=== PATIENT | male | born 1950 | race Caucasian/White ===

== ENCOUNTER 2018-11-11 15:15 | Outpatient (RCR) | payer MEDICARE, BC, SELFPAY ==
--- NOTE | 2018-10-06 12:45 | PT.OIE ---
Current Diagnoses Dorsalgia, unspecified (10/06/18) Provider Visit Care Team Role Provider Type Keith Clemens MD Attending Provider Physician Primary Care Provider Specialty: Internal Medicine Address: [address] [place] [address], [facility] Email: Physical Therapy Initial Evaluation PT-OP-A Visit Information Start: 10/09/18 12:36 Freq: Status: Active Protocol: Document 10/06/18 12:45 RCC (Rec: 10/09/18 12:59 RCC [email or web address]) Out-Patient Physical Therapy Visit Information Visit Information Visit Type Initial Evaluation Visit Start Time 12:00 Visit Stop Time 12:45 Total Visit Minutes 45 Visit Number 1 Number of [employer] Visits 0 Evaluation Information Evaluation Date 10/06/18 PT-OP-B Current Condition Start: 10/09/18 12:36 Freq: Status: Active Protocol: Document 10/06/18 12:45 RCC (Rec: 10/09/18 12:59 RCC [email or web address]) Current Condition History of Current Condition Onset Date August 2018 Current Complaints low back pain History of Current Condition Pt is a 68 y/o male presenting to physical therapy with a c/ o low back pain. Pt notes pain started after moving from [facility] to the [facility], lifting boxes and furniture, and traveling in an RV sleeping on a different mattress. Pt notes that pain has been getting better over the past two weeks . Aggravating factors: prolonged sitting and extension. Relieving factors: stretching. Pt without any imaging at this point. Treatment Goals Patient/Caregiver Goals decrease pain Prior Functional Status Baseline Function- ADL's Independent Baseline Function- Mobility Independent Baseline Function- Gait community gait without device, no pain. Current Functional Impairments (Reported) Functional Limitations- Mobility/Gait some increase in pain with prolonged standing and walking PT-OP-C Subjective Start: 10/09/18 12:36 Freq: Status: Active Protocol: Document 10/06/18 12:45 RCC (Rec: 10/09/18 12:59 RCC [email or web address]) Patient Questionnaires Oswestry Low Back Index Oswestry Score 14 Oswestry Impairment 1 to 19% Impaired (Score 1-19) OP-PT Pain Assessment Location Bilateral Lower Back Intensity 4 Scale Used Numeric (1 - 10) Description Aching PT-OP-F Manual Assessment Start: 10/09/18 12:36 Freq: Status: Active Protocol: Document 10/06/18 12:45 RCC (Rec: 10/09/18 12:59 RCC [email or web address]) Manual Assessments Soft Tissue Assessment Soft Tissue Mobility Assessment increased tension B paraspinals, piriformis and gluteals, QL Joint Mobility Assessment Joint Mobility Assessment hypermobility of L3-5 PT-OP-H Neuro Start: 10/09/18 12:36 Freq: Status: Active Protocol: Document 10/06/18 12:45 RCC (Rec: 10/09/18 12:59 RCC [email or web address]) Sensation Evaluation Gross Sensation Gross Sensation WNL Deep Tendon Reflex & Clonus Assessment Deep Tendon Reflex Bilateral Achilles Deep Tendon Reflex 2+ Normal Bilateral Patellar Deep Tendon Reflex 2+ Normal Ankle Clonus Bilateral Clonus Assessment Absent PT-OP-K Range of Motion Start: 10/09/18 12:36 Freq: Status: Active Protocol: Document 10/06/18 12:45 RCC (Rec: 10/09/18 12:59 RCC [email or web address]) Lumbar Spine Range of Motion Lumbar Spine Active Degrees Testing Position Standing Flexion 75 Extension 15 Comments pain upon return to neutral from extended position. PT-OP-L Special Tests Start: 10/09/18 12:36 Freq: Status: Active Protocol: Document 10/06/18 12:45 RCC (Rec: 10/09/18 12:59 RCC [email or web address]) Special Tests Lumbar Spine Special Tests SI provocation Test Results negative Slump Test Results negative Prone Instability Test Test Results positive Comments L3-5 Straight Leg Raise Test Results negative PT-OP-M Strength Start: 10/09/18 12:36 Freq: Status: Active Protocol: Document 10/06/18 12:45 RCC (Rec: 10/09/18 12:59 RCC [email or web address]) Hip Strength Hip Manual Muscle Testing Right Flexion (L2) 5 Normal External Rotation 4+ Good+ Internal Rotation 4 Good Left Flexion (L2) 5 Normal External Rotation 4+ Good+ Internal Rotation 4+ Good+ Knee Strength Knee Manual Muscle Testing Right Flexion (S2) 5 Normal Extension (L3) 5 Normal Left Flexion (S2) 5 Normal Extension (L3) 5 Normal Ankle/Foot Strength Ankle and Foot Manual Muscle Testing Right Dorsiflexion (L4) 5 Normal Left Dorsiflexion (L4) 5 Normal Toe Strength Toe Manual Muscle Testing Right Great Toe Extension 5 Normal Left Great Toe Extension 5 Normal PT-OP-Q Treatments Start: 10/09/18 12:36 Freq: Status: Active Protocol: Document 10/06/18 12:45 RCC (Rec: 10/09/18 12:59 RCC [email or web address]) Therapeutic Exercises Supine Exercises DKC Side bilateral rotation stretch Side bilateral piriformis stretch Side bilateral TrAb activation with march Supine Exercise Name transverse abdominal activation with marching Side bilateral Reps/Minutes 10 Other Exercises cat/camel Other Exercise Name cat/camel (camel to neutral only) Side bilateral Reps/Minutes 10 PT-OP-T Assessment and Plan Start: 10/09/18 12:36 Freq: Status: Active Protocol: Document 10/06/18 12:45 RCC (Rec: 10/09/18 12:59 RCC [email or web address]) Physical Therapy Assessment Rehab Potential Rehabilitation Potential Excellent Evaluation Complexity Number of Personal Factors/Comorbidities 1-2 Number of Body Systems Impaired 3 Clinical Presentation at Evaluation Stable Impairments Impairments Pain ROM Soft Tissue Mobility Strength Goals Modified Oswestry Impairment Modified Oswestry: 14% perceived disability Longterm Goal (LTG) Pt will score 0% perceived disability related to back pain prior to d/c to demonstrate improvements with daily function and activities, return to prior level of function. LTG Duration 6 weeks walking Impairment tolerance to gait Short Term Goal (STG) pt will ambulate 15 min, 3 days per week for a home walking program without increased in low back pain STG Duration 3 weeks Longterm Goal (LTG) pt will ambulate outdoors 30 min, 5 days per week as part of a home walking program without low back pain prior to d/c LTG Duration 6 weeks lumbar ROM Impairment lumbar extension Longterm Goal (LTG) lumbar extension to 20+ degrees without pain upon return to neutral to demonstrate improved lumbar stabilization. LTG Duration 6 weeks hip strength Impairment bilateral hip weakness Brickmason Contractor Goal (LTG) hip strength (IR and ER) to 5/ 5 with manual muscle testing prior to d/c. LTG Duration 6 weeks Assessment Summary Assessment Pt presents with signs and symptoms consistent with lumbar strain/sprain due to lumbar instability. Pt would greatly benefit from abdominal , lumbar, and hip strengthening/stabilization as well as flexibility training, progression of a HEP to decrease injury recurrence, establish a home walking program, and manual therapy to decrease pain in lumbar spine . Overall pt is an excellent candidate for skilled outpatient physical therapy. Physical Therapy Plan Frequency and Duration Frequency of Treatment 2x/Week Duration of Treatment 6 weeks Plan of Care Start Date 10/06/18 Plan of Care End Date 11/17/18 Therapeutic Interventions Therapeutic Interventions Aquatic Therapy Gait Training Home Exercise Program Joint Mobilizations Manual Therapy Neuromuscular Re-education Patient/Caregiver Education Self-Care/Home Management Soft Tissue Mobilization Taping Therapeutic Activities Therapeutic Exercises Modalities Cold Pack/Ice Massage Electric Stimulation Hot Packs Traction- Mechanical Ultrasound Next Visit Focus/Plan Next Note Type Treatment Note Next Visit Plan advance core/lumbar stability (flexion biasis likely initially, then progress to neutral and extension), hip IR and ER strengthening.
--- NOTE | 2018-10-11 17:32 | PT.OTN ---
Current Diagnoses Dorsalgia, unspecified (10/11/18) Physical Therapy Treatment Note PT-OP-A Visit Information Start: 10/09/18 12:36 Freq: Status: Active Protocol: Document 10/11/18 16:45 DCW (Rec: 10/11/18 17:32 DCW [id number]) Out-Patient Physical Therapy Visit Information Visit Information Visit Type Treatment Note Visit Start Time 16:45 Visit Stop Time 17:30 Total Visit Minutes 45 Visit Number 2 Number of ALLERGIST/IMMUNOLOGIST PHYSICIAN Visits 0 Evaluation Information Evaluation Date 10/06/18 PT-OP-B Current Condition Start: 10/09/18 12:36 Freq: Status: Active Protocol: Document 10/06/18 12:45 RCC (Rec: 10/09/18 12:59 RCC [email or web address]) Current Condition History of Current Condition Onset Date August 2018 Current Complaints low back pain History of Current Condition Pt is a 68 y/o male presenting to physical therapy with a c/ o low back pain. Pt notes pain started after moving from [facility] to the [facility], lifting boxes and furniture, and traveling in an sleeping on a different mattress. Pt notes that pain has been getting better over the past two weeks . Aggravating factors: prolonged sitting and extension. Relieving factors: stretching. Pt without any imaging at this point. Treatment Goals Patient/Caregiver Goals decrease pain Prior Functional Status Baseline Function- ADL's Independent Baseline Function- Mobility Independent Baseline Function- Gait community gait without device, no pain. Current Functional Impairments (Reported) Functional Limitations- Mobility/Gait some increase in pain with prolonged standing and walking PT-OP-C Subjective Start: 10/09/18 12:36 Freq: Status: Active Protocol: Document 10/11/18 16:45 DCW (Rec: 10/11/18 17:32 DCW [id number]) OP-PT Subjective Patient Comments Patient Comments Pt notes he is marginally better, but admits his back still seems to tighten up in the evening PT-OP-F Manual Assessment Start: 10/09/18 12:36 Freq: Status: Active Protocol: Document 10/06/18 12:45 RCC (Rec: 10/09/18 12:59 RCC [email or web address]) Manual Assessments Soft Tissue Assessment Soft Tissue Mobility Assessment increased tension B paraspinals, piriformis and gluteals, QL Joint Mobility Assessment Joint Mobility Assessment hypermobility of L3-5 PT-OP-H Neuro Start: 10/09/18 12:36 Freq: Status: Active Protocol: Document 10/06/18 12:45 RCC (Rec: 10/09/18 12:59 RCC [email or web address]) Sensation Evaluation Gross Sensation Gross Sensation WNL Deep Tendon Reflex & Clonus Assessment Deep Tendon Reflex Bilateral Achilles Deep Tendon Reflex 2+ Normal Bilateral Patellar Deep Tendon Reflex 2+ Normal Ankle Clonus Bilateral Clonus Assessment Absent PT-OP-K Range of Motion Start: 10/09/18 12:36 Freq: Status: Active Protocol: Document 10/06/18 12:45 RCC (Rec: 10/09/18 12:59 RCC [email or web address]) Lumbar Spine Range of Motion Lumbar Spine Active Degrees Testing Position Standing Flexion 75 Extension 15 Comments pain upon return to neutral from extended position. PT-OP-L Special Tests Start: 10/09/18 12:36 Freq: Status: Active Protocol: Document 10/06/18 12:45 RCC (Rec: 10/09/18 12:59 RCC [email or web address]) Special Tests Lumbar Spine Special Tests SI provocation Test Results negative Slump Test Results negative Prone Instability Test Test Results positive Comments L3-5 Straight Leg Raise Test Results negative PT-OP-M Strength Start: 10/09/18 12:36 Freq: Status: Active Protocol: Document 10/06/18 12:45 RCC (Rec: 10/09/18 12:59 RCC [email or web address]) Hip Strength Hip Manual Muscle Testing Right Flexion (L2) 5 Normal External Rotation 4+ Good+ Internal Rotation 4 Good Left Flexion (L2) 5 Normal External Rotation 4+ Good+ Internal Rotation 4+ Good+ Knee Strength Knee Manual Muscle Testing Right Flexion (S2) 5 Normal Extension (L3) 5 Normal Left Flexion (S2) 5 Normal Extension (L3) 5 Normal Ankle/Foot Strength Ankle and Foot Manual Muscle Testing Right Dorsiflexion (L4) 5 Normal Left Dorsiflexion (L4) 5 Normal Toe Strength Toe Manual Muscle Testing Right Great Toe Extension 5 Normal Left Great Toe Extension 5 Normal PT-OP-Q Treatments Start: 10/09/18 12:36 Freq: Status: Active Protocol: Document 10/11/18 16:45 DCW (Rec: 10/11/18 17:32 DCW [id number]) Gym Equipment Therapeutic Ball Resisted Trunk Rotation Exercise Details Trunk rotation vs Lv 3 T-band resistance Ball Size/Color Green - 65 cm Bridging on T-ball Exercise Details Bridging /c feet on T-ball Ball Size/Color Red - 55 cm Body Position Supine Therapeutic Exercises Supine Exercises TrA activation /c SLR Supine Exercise Name PPT /c TrA - Alternating SLR Bridging /c alternating LE ext Supine Exercise Name Bridging /c alternating leg extension Side bilateral Bridging Supine Exercise Name Bridging piriformis stretch Side bilateral Sidelying Exercises Reverse Clamshell Sidelying Exercise Name Hip IR - Reverse Clamshell Side bilateral Clamshell Sidelying Exercise Name Hip ER - Clamshell Side bilateral Other Exercises Resisted Forward/Retro Walking Other Exercise Name Resisted Fwd/Retro Ambulation Side bilateral Resistance Green Equipment Used T-band Resisted Side-stepping Other Exercise Name Resisted Side-stepping Side bilateral Resistance Green Equipment Used T-band PT-OP-T Assessment and Plan Start: 10/09/18 12:36 Freq: Status: Active Protocol: Document 10/11/18 16:45 DCW (Rec: 10/11/18 17:32 DCW [email or web address]) Physical Therapy Assessment Impairments Impairments Pain ROM Soft Tissue Mobility Strength Goals Modified Oswestry Impairment Modified Oswestry: 14% perceived disability Alf Goal (LTG) Pt will score 0% perceived disability related to back pain prior to d/c to demonstrate improvements with daily function and activities, return to prior level of function. LTG Duration 6 weeks walking Impairment tolerance to gait Short Term Goal (STG) pt will ambulate 15 min, 3 days per week for a home walking program without increased in low back pain STG Duration 3 weeks Alf Goal (LTG) pt will ambulate outdoors 30 min, 5 days per week as part of a home walking program without low back pain prior to d/c LTG Duration 6 weeks lumbar ROM Impairment lumbar extension Finish Patcher Goal (LTG) lumbar extension to 20+ degrees without pain upon return to neutral to demonstrate improved lumbar stabilization. LTG Duration 6 weeks hip strength Impairment bilateral hip weakness Alf Goal (LTG) hip strength (IR and ER) to 5/ 5 with manual muscle testing prior to d/c. LTG Duration 6 weeks Assessment Summary Assessment Pt tolerated new hip and core strengthening exercises well with no complaints of back pain Physical Therapy Plan Frequency and Duration Frequency of Treatment 2x/Week Duration of Treatment 6 weeks Plan of Care Start Date 10/06/18 Plan of Care End Date 11/17/18 Therapeutic Interventions Therapeutic Interventions Aquatic Therapy Gait Training Home Exercise Program Joint Mobilizations Manual Therapy Neuromuscular Re-education Patient/Caregiver Education Self-Care/Home Management Soft Tissue Mobilization Taping Therapeutic Activities Therapeutic Exercises Modalities Cold Pack/Ice Massage Electric Stimulation Hot Packs Traction- Mechanical Ultrasound Next Visit Focus/Plan Next Note Type Treatment Note Next Visit Plan Continue and advance LE and core strengthening, plan to add manual therapy to spine and additional flexibility training.
--- NOTE | 2018-10-25 17:55 | PT.OTN ---
Current Diagnoses Dorsalgia, unspecified (10/25/18) Physical Therapy Treatment Note PT-OP-A Visit Information Start: 10/09/18 12:36 Freq: Status: Active Protocol: Document 10/25/18 16:45 DCW (Rec: 10/25/18 17:55 DC [id number]) Out-Patient Physical Therapy Visit Information Visit Information Visit Type Treatment Note Visit Start Time 16:45 Visit Stop Time 17:30 Total Visit Minutes 45 Visit Number 3 Number of AMALGAMATOR Visits 0 Evaluation Information Evaluation Date 10/06/18 PT-OP-B Current Condition Start: 10/09/18 12:36 Freq: Status: Active Protocol: Document 10/06/18 12:45 RCC (Rec: 10/09/18 12:59 RCC [email or web address]) Current Condition History of Current Condition Onset Date August 2018 Current Complaints low back pain History of Current Condition Pt is a 68 y/o male presenting to physical therapy with a c/ o low back pain. Pt notes pain started after moving from [facility] to the [facility], lifting boxes and furniture, and traveling in an sleeping on a different mattress. Pt notes that pain has been getting better over the past two weeks . Aggravating factors: prolonged sitting and extension. Relieving factors: stretching. Pt without any imaging at this point. Treatment Goals Patient/Caregiver Goals decrease pain Prior Functional Status Baseline Function- ADL's Independent Baseline Function- Mobility Independent Baseline Function- Gait community gait without device, no pain. Current Functional Impairments (Reported) Functional Limitations- Mobility/Gait some increase in pain with prolonged standing and walking PT-OP-C Subjective Start: 10/09/18 12:36 Freq: Status: Active Protocol: Document 10/25/18 16:45 DCW (Rec: 10/25/18 17:55 DCW [id number]) OP-PT Subjective Patient Comments Patient Comments Pt reports he is doing better today, but over-did it Wednesday and was pretty sore. PT-OP-F Manual Assessment Start: 10/09/18 12:36 Freq: Status: Active Protocol: Document 10/06/18 12:45 RCC (Rec: 10/09/18 12:59 RCC [email or web address]) Manual Assessments Soft Tissue Assessment Soft Tissue Mobility Assessment increased tension B paraspinals, piriformis and gluteals, QL Joint Mobility Assessment Joint Mobility Assessment hypermobility of L3-5 PT-OP-H Neuro Start: 10/09/18 12:36 Freq: Status: Active Protocol: Document 10/06/18 12:45 RCC (Rec: 10/09/18 12:59 RCC [email or web address]) Sensation Evaluation Gross Sensation Gross Sensation WNL Deep Tendon Reflex & Clonus Assessment Deep Tendon Reflex Bilateral Achilles Deep Tendon Reflex 2+ Normal Bilateral Patellar Deep Tendon Reflex 2+ Normal Ankle Clonus Bilateral Clonus Assessment Absent PT-OP-K Range of Motion Start: 10/09/18 12:36 Freq: Status: Active Protocol: Document 10/06/18 12:45 RCC (Rec: 10/09/18 12:59 RCC [email or web address]) Lumbar Spine Range of Motion Lumbar Spine Active Degrees Testing Position Standing Flexion 75 Extension 15 Comments pain upon return to neutral from extended position. PT-OP-L Special Tests Start: 10/09/18 12:36 Freq: Status: Active Protocol: Document 10/06/18 12:45 RCC (Rec: 10/09/18 12:59 RCC [email or web address]) Special Tests Lumbar Spine Special Tests SI provocation Test Results negative Slump Test Results negative Prone Instability Test Test Results positive Comments L3-5 Straight Leg Raise Test Results negative PT-OP-M Strength Start: 10/09/18 12:36 Freq: Status: Active Protocol: Document 10/06/18 12:45 RCC (Rec: 10/09/18 12:59 RCC [email or web address]) Hip Strength Hip Manual Muscle Testing Right Flexion (L2) 5 Normal External Rotation 4+ Good+ Internal Rotation 4 Good Left Flexion (L2) 5 Normal External Rotation 4+ Good+ Internal Rotation 4+ Good+ Knee Strength Knee Manual Muscle Testing Right Flexion (S2) 5 Normal Extension (L3) 5 Normal Left Flexion (S2) 5 Normal Extension (L3) 5 Normal Ankle/Foot Strength Ankle and Foot Manual Muscle Testing Right Dorsiflexion (L4) 5 Normal Left Dorsiflexion (L4) 5 Normal Toe Strength Toe Manual Muscle Testing Right Great Toe Extension 5 Normal Left Great Toe Extension 5 Normal PT-OP-Q Treatments Start: 10/09/18 12:36 Freq: Status: Active Protocol: Document 10/25/18 16:45 DCW (Rec: 10/25/18 17:55 DCW [id number]) Gym Equipment Shuttle Recovery Unilateral Squats Resistance 62# Shuttle Recovery Platform Stable Reps/Time VCs for TrA activation Bilateral Squats Resistance 100# Shuttle Recovery Platform Stable Reps/Time VCs for TrA activation Shuttle Balance Red Details Wide ROCAEL (EO/EC), Staggered Stance Therapeutic Ball Bridging with Hamstring Curls Exercise Details Bridging with Hamstring Curls Ball Size/Color Red - 55 cm Body Position Supine Resisted Trunk Rotation Exercise Details Trunk rotation vs Lv 3 T-band resistance Ball Size/Color Green - 65 cm Bridging on T-ball Exercise Details Bridging /c feet on T-ball Ball Size/Color Red - 55 cm Body Position Supine Therapeutic Exercises Supine Exercises Hamstring Stretch Supine Exercise Name HS stretch /c belt Side bilateral Other Exercises Resisted Forward/Retro Walking Other Exercise Name Resisted Fwd/Retro Ambulation Side bilateral Resistance Green Equipment Used T-band Resisted Side-stepping Other Exercise Name Resisted Side-stepping Side bilateral Resistance Green Equipment Used T-band PT-OP-T Assessment and Plan Start: 10/09/18 12:36 Freq: Status: Active Protocol: Document 10/25/18 16:45 DCW (Rec: 10/25/18 17:55 DCW [id number]) Physical Therapy Assessment Impairments Impairments Pain ROM Soft Tissue Mobility Strength Goals Modified Oswestry Impairment Modified Oswestry: 14% perceived disability Shelter Goal (LTG) Pt will score 0% perceived disability related to back pain prior to d/c to demonstrate improvements with daily function and activities, return to prior level of function. LTG Duration 6 weeks walking Impairment tolerance to gait Short Term Goal (STG) pt will ambulate 15 min, 3 days per week for a home walking program without increased in low back pain STG Duration 3 weeks Sugar Mixer Goal (LTG) pt will ambulate outdoors 30 min, 5 days per week as part of a home walking program without low back pain prior to d/c LTG Duration 6 weeks lumbar ROM Impairment lumbar extension Sugar Mixer Goal (LTG) lumbar extension to 20+ degrees without pain upon return to neutral to demonstrate improved lumbar stabilization. LTG Duration 6 weeks hip strength Impairment bilateral hip weakness Shelter Goal (LTG) hip strength (IR and ER) to 5/ 5 with manual muscle testing prior to d/c. LTG Duration 6 weeks Assessment Summary Assessment Pt tolerated advancement of core and LE strengthening, work on increased lumbar stability Physical Therapy Plan Frequency and Duration Frequency of Treatment 2x/Week Duration of Treatment 6 weeks Plan of Care Start Date 10/06/18 Plan of Care End Date 11/17/18 Therapeutic Interventions Therapeutic Interventions Aquatic Therapy Gait Training Home Exercise Program Joint Mobilizations Manual Therapy Neuromuscular Re-education Patient/Caregiver Education Self-Care/Home Management Soft Tissue Mobilization Taping Therapeutic Activities Therapeutic Exercises Modalities Cold Pack/Ice Massage Electric Stimulation Hot Packs Traction- Mechanical Ultrasound Next Visit Focus/Plan Next Note Type Treatment Note Next Visit Plan Continue and advance LE and core strengthening, plan to add manual therapy to spine and additional flexibility training.
--- NOTE | 2018-11-01 12:44 | PT.OTN ---
Current Diagnoses Dorsalgia, unspecified (11/01/18) Physical Therapy Treatment Note PT-OP-A Visit Information Start: 10/09/18 12:36 Freq: Status: Active Protocol: Document 11/01/18 12:00 DCW (Rec: 11/01/18 12:43 DCW [id number]) Out-Patient Physical Therapy Visit Information Visit Information Visit Type Treatment Note Visit Start Time 12:00 Visit Stop Time 12:45 Total Visit Minutes 45 Visit Number 4 Number of SWEATBAND MAKER Visits 0 Evaluation Information Evaluation Date 10/06/18 PT-OP-B Current Condition Start: 10/09/18 12:36 Freq: Status: Active Protocol: Document 10/06/18 12:45 RCC (Rec: 10/09/18 12:59 RCC [email or web address]) Current Condition History of Current Condition Onset Date August 2018 Current Complaints low back pain History of Current Condition Pt is a 68 y/o male presenting to physical therapy with a c/ o low back pain. Pt notes pain started after moving from [place] to the [facility], lifting boxes and furniture, and traveling in an sleeping on a different mattress. Pt notes that pain has been getting better over the past two weeks . Aggravating factors: prolonged sitting and extension. Relieving factors: stretching. Pt without any imaging at this point. Treatment Goals Patient/Caregiver Goals decrease pain Prior Functional Status Baseline Function- ADL's Independent Baseline Function- Mobility Independent Baseline Function- Gait community gait without device, no pain. Current Functional Impairments (Reported) Functional Limitations- Mobility/Gait some increase in pain with prolonged standing and walking PT-OP-C Subjective Start: 10/09/18 12:36 Freq: Status: Active Protocol: Document 11/01/18 12:00 DCW (Rec: 11/01/18 12:43 DCW [id number]) OP-PT Subjective Patient Comments Patient Comments I'm a bit better. It took a while, but I'm finally coming to realize that I'm getting older, and it just takes longer to heal and to come back from injuries. PT-OP-F Manual Assessment Start: 10/09/18 12:36 Freq: Status: Active Protocol: Document 10/06/18 12:45 RCC (Rec: 10/09/18 12:59 RCC [email or web address]) Manual Assessments Soft Tissue Assessment Soft Tissue Mobility Assessment increased tension B paraspinals, piriformis and gluteals, QL Joint Mobility Assessment Joint Mobility Assessment hypermobility of L3-5 PT-OP-H Neuro Start: 10/09/18 12:36 Freq: Status: Active Protocol: Document 10/06/18 12:45 RCC (Rec: 10/09/18 12:59 RCC [email or web address]) Sensation Evaluation Gross Sensation Gross Sensation WNL Deep Tendon Reflex & Clonus Assessment Deep Tendon Reflex Bilateral Achilles Deep Tendon Reflex 2+ Normal Bilateral Patellar Deep Tendon Reflex 2+ Normal Ankle Clonus Bilateral Clonus Assessment Absent PT-OP-K Range of Motion Start: 10/09/18 12:36 Freq: Status: Active Protocol: Document 10/06/18 12:45 RCC (Rec: 10/09/18 12:59 RCC [email or web address]) Lumbar Spine Range of Motion Lumbar Spine Active Degrees Testing Position Standing Flexion 75 Extension 15 Comments pain upon return to neutral from extended position. PT-OP-L Special Tests Start: 10/09/18 12:36 Freq: Status: Active Protocol: Document 10/06/18 12:45 RCC (Rec: 10/09/18 12:59 RCC [email or web address]) Special Tests Lumbar Spine Special Tests SI provocation Test Results negative Slump Test Results negative Prone Instability Test Test Results positive Comments L3-5 Straight Leg Raise Test Results negative PT-OP-M Strength Start: 10/09/18 12:36 Freq: Status: Active Protocol: Document 10/06/18 12:45 RCC (Rec: 10/09/18 12:59 RCC [email or web address]) Hip Strength Hip Manual Muscle Testing Right Flexion (L2) 5 Normal External Rotation 4+ Good+ Internal Rotation 4 Good Left Flexion (L2) 5 Normal External Rotation 4+ Good+ Internal Rotation 4+ Good+ Knee Strength Knee Manual Muscle Testing Right Flexion (S2) 5 Normal Extension (L3) 5 Normal Left Flexion (S2) 5 Normal Extension (L3) 5 Normal Ankle/Foot Strength Ankle and Foot Manual Muscle Testing Right Dorsiflexion (L4) 5 Normal Left Dorsiflexion (L4) 5 Normal Toe Strength Toe Manual Muscle Testing Right Great Toe Extension 5 Normal Left Great Toe Extension 5 Normal PT-OP-Q Treatments Start: 10/09/18 12:36 Freq: Status: Active Protocol: Document 11/01/18 12:00 DCW (Rec: 11/01/18 12:43 DCW [id number]) Gym Equipment Shuttle Recovery Unilateral Squats Resistance 62# Shuttle Recovery Platform Stable Reps/Time VCs for TrA activation Bilateral Squats Resistance 100# Shuttle Recovery Platform Stable Reps/Time VCs for TrA activation Shuttle Balance Red Details Wide ROCAEL (EO/EC), Staggered Stance Therapeutic Ball Bridging with Hamstring Curls Exercise Details Bridging with Hamstring Curls Ball Size/Color Red - 55 cm Body Position Supine Resisted Trunk Rotation Exercise Details Trunk rotation vs Lv 3 T-band resistance Ball Size/Color Green - 65 cm Bridging on T-ball Exercise Details Bridging /c feet on T-ball Ball Size/Color Red - 55 cm Body Position Supine Therapeutic Exercises Sidelying Exercises Reverse Clamshell Sidelying Exercise Name Hip IR - Reverse Clamshell Side bilateral Resistance Lv 2 Equipment Used T-band Clamshell Sidelying Exercise Name Hip ER - Clamshell Side bilateral Resistance Lv 2 Equipment Used T-band Other Exercises Resisted Forward/Retro Walking Other Exercise Name Resisted Fwd/Retro Ambulation Side bilateral Resistance Green Equipment Used T-band Resisted Side-stepping Other Exercise Name Resisted Side-stepping Side bilateral Resistance Green Equipment Used T-band cat/camel Other Exercise Name cat/camel (camel to neutral only) Side bilateral Reps/Minutes 10 PT-OP-T Assessment and Plan Start: 10/09/18 12:36 Freq: Status: Active Protocol: Document 11/01/18 12:00 DCW (Rec: 11/01/18 12:43 [facility] [id number]) Physical Therapy Assessment Impairments Impairments Pain ROM Soft Tissue Mobility Strength Goals Modified Oswestry Impairment Modified Oswestry: 14% perceived disability Search Engine Marketing Strategist Goal (LTG) Pt will score 0% perceived disability related to back pain prior to d/c to demonstrate improvements with daily function and activities, return to prior level of function. LTG Duration 6 weeks walking Impairment tolerance to gait Short Term Goal (STG) pt will ambulate 15 min, 3 days per week for a home walking program without increased in low back pain STG Duration 3 weeks Group Home Goal (LTG) pt will ambulate outdoors 30 min, 5 days per week as part of a home walking program without low back pain prior to d/c LTG Duration 6 weeks lumbar ROM Impairment lumbar extension Group Home Goal (LTG) lumbar extension to 20+ degrees without pain upon return to neutral to demonstrate improved lumbar stabilization. LTG Duration 6 weeks hip strength Impairment bilateral hip weakness Group Home Goal (LTG) hip strength (IR and ER) to 5/ 5 with manual muscle testing prior to d/c. LTG Duration 6 weeks Assessment Summary Assessment Pt showing improvement with his back pain and LE/Core strengthening. Physical Therapy Plan Frequency and Duration Frequency of Treatment 2x/Week Duration of Treatment 6 weeks Plan of Care Start Date 10/06/18 Plan of Care End Date 11/17/18 Therapeutic Interventions Therapeutic Interventions Aquatic Therapy Gait Training Home Exercise Program Joint Mobilizations Manual Therapy Neuromuscular Re-education Patient/Caregiver Education Self-Care/Home Management Soft Tissue Mobilization Taping Therapeutic Activities Therapeutic Exercises Modalities Cold Pack/Ice Massage Electric Stimulation Hot Packs Traction- Mechanical Ultrasound Next Visit Focus/Plan Next Note Type Treatment Note Next Visit Plan Continue and advance LE and core strengthening, plan to add manual therapy to spine and additional flexibility training.
--- NOTE | 2018-11-04 15:10 | PT.OTN ---
Current Diagnoses Dorsalgia, unspecified (11/04/18) Physical Therapy Treatment Note PT-OP-A Visit Information Start: 10/09/18 12:36 Freq: Status: Active Protocol: Document 11/04/18 15:10 RCC (Rec: 11/04/18 15:31 RCC [email or web address]) Out-Patient Physical Therapy Visit Information Visit Information Visit Type Treatment Note Visit Start Time 14:30 Visit Stop Time 15:10 Total Visit Minutes 40 Visit Number 5 Number of HUMANITIES TEACHER Visits 0 Evaluation Information Evaluation Date 10/06/18 PT-OP-B Current Condition Start: 10/09/18 12:36 Freq: Status: Active Protocol: Document 10/06/18 12:45 RCC (Rec: 10/09/18 12:59 RCC [email or web address]) Current Condition History of Current Condition Onset Date August 2018 Current Complaints low back pain History of Current Condition Pt is a 68 y/o male presenting to physical therapy with a c/ o low back pain. Pt notes pain started after moving from [facility] to the [facility], lifting boxes and furniture, and traveling in an sleeping on a different mattress. Pt notes that pain has been getting better over the past two weeks . Aggravating factors: prolonged sitting and extension. Relieving factors: stretching. Pt without any imaging at this point. Treatment Goals Patient/Caregiver Goals decrease pain Prior Functional Status Baseline Function- ADL's Independent Baseline Function- Mobility Independent Baseline Function- Gait community gait without device, no pain. Current Functional Impairments (Reported) Functional Limitations- Mobility/Gait some increase in pain with prolonged standing and walking PT-OP-C Subjective Start: 10/09/18 12:36 Freq: Status: Active Protocol: Document 11/04/18 15:10 RCC (Rec: 11/04/18 15:31 RCC [email or web address]) OP-PT Subjective Patient Comments Patient Comments Pt notes that he occasionally has L foot numbness/tingling when he wakes up in the morning. He is still having some minor pain in the low back region. PT-OP-F Manual Assessment Start: 10/09/18 12:36 Freq: Status: Active Protocol: Document 11/04/18 15:10 RCC (Rec: 11/04/18 15:31 RCC [email or web address]) Manual Assessments Other Manual Assessments Other Manual Assessments R posterior ilial rotation. unable to illicit R achilles DTR PT-OP-H Neuro Start: 10/09/18 12:36 Freq: Status: Active Protocol: Document 10/06/18 12:45 RCC (Rec: 10/09/18 12:59 RCC [email or web address]) Sensation Evaluation Gross Sensation Gross Sensation WNL Deep Tendon Reflex & Clonus Assessment Deep Tendon Reflex Bilateral Achilles Deep Tendon Reflex 2+ Normal Bilateral Patellar Deep Tendon Reflex 2+ Normal Ankle Clonus Bilateral Clonus Assessment Absent PT-OP-K Range of Motion Start: 10/09/18 12:36 Freq: Status: Active Protocol: Document 10/06/18 12:45 RCC (Rec: 10/09/18 12:59 RCC [email or web address]) Lumbar Spine Range of Motion Lumbar Spine Active Degrees Testing Position Standing Flexion 75 Extension 15 Comments pain upon return to neutral from extended position. PT-OP-L Special Tests Start: 10/09/18 12:36 Freq: Status: Active Protocol: Document 10/06/18 12:45 RCC (Rec: 10/09/18 12:59 RCC [email or web address]) Special Tests Lumbar Spine Special Tests SI provocation Test Results negative Slump Test Results negative Prone Instability Test Test Results positive Comments L3-5 Straight Leg Raise Test Results negative PT-OP-M Strength Start: 10/09/18 12:36 Freq: Status: Active Protocol: Document 10/06/18 12:45 RCC (Rec: 10/09/18 12:59 RCC [email or web address]) Hip Strength Hip Manual Muscle Testing Right Flexion (L2) 5 Normal External Rotation 4+ Good+ Internal Rotation 4 Good Left Flexion (L2) 5 Normal External Rotation 4+ Good+ Internal Rotation 4+ Good+ Knee Strength Knee Manual Muscle Testing Right Flexion (S2) 5 Normal Extension (L3) 5 Normal Left Flexion (S2) 5 Normal Extension (L3) 5 Normal Ankle/Foot Strength Ankle and Foot Manual Muscle Testing Right Dorsiflexion (L4) 5 Normal Left Dorsiflexion (L4) 5 Normal Toe Strength Toe Manual Muscle Testing Right Great Toe Extension 5 Normal Left Great Toe Extension 5 Normal PT-OP-Q Treatments Start: 10/09/18 12:36 Freq: Status: Active Protocol: Document 11/04/18 15:10 RCC (Rec: 11/04/18 15:31 RCC [email or web address]) Therapeutic Exercises Supine Exercises DKC Side bilateral rotation stretch Side bilateral piriformis stretch Side bilateral Prone Exercises hip extension Side bilateral Reps/Minutes 1x10 each Standing Exercises HS stretch Side bilateral Reps/Minutes 2x30 sec each hip hike Standing Exercise Name hip hiking on stair Side bilateral Reps/Minutes 1x10 each hip extension Side bilateral Resistance L2 Reps/Minutes 1x10 each Other Exercises quadruped alternating LE Side bilateral Reps/Minutes 1x10 each Manual Therapy Treatment Soft Tissue Mobilization lumbar paraspinals Body Location bilateral lumbar paraspinals Mobilization Type Rolling Strumming Intensity/Depth Moderate Body Position Prone Manual Techniques MET Type R posterior ilial rotation correction with scissor technique Body Position Hooklying PT-OP-T Assessment and Plan Start: 10/09/18 12:36 Freq: Status: Active Protocol: Document 11/04/18 15:10 RCC (Rec: 11/04/18 15:31 RCC [email or web address]) Physical Therapy Assessment Assessment Summary Assessment Pt continues to have mild c/o low back pain. He requires occasional cuing with quadruped and standing strengthening exercises. Absent/unable to illicit his R achilles DTR today, but L achilles and B patellar DTRs 2 +. Physical Therapy Plan Frequency and Duration Frequency of Treatment 2x/Week Duration of Treatment 6 weeks Plan of Care Start Date 10/06/18 Plan of Care End Date 11/17/18 Next Visit Focus/Plan Next Note Type Treatment Note Next Visit Plan assess tolerance to manual therapy, review and progress HEP (added hip hike on stairs and quadruped alt LE lift this session).
--- NOTE | 2018-11-08 12:45 | PT.OTN ---
Current Diagnoses Dorsalgia, unspecified (11/08/18) Physical Therapy Treatment Note PT-OP-A Visit Information Start: 10/09/18 12:36 Freq: Status: Active Protocol: Document 11/08/18 12:00 DCW (Rec: 11/08/18 12:45 DCW [id number]) Out-Patient Physical Therapy Visit Information Visit Information Visit Type Treatment Note Visit Start Time 12:00 Visit Stop Time 12:45 Total Visit Minutes 45 Visit Number 6 Number of PIT FURNACE OPERATOR Visits 0 Evaluation Information Evaluation Date 10/06/18 PT-OP-B Current Condition Start: 10/09/18 12:36 Freq: Status: Active Protocol: Document 10/06/18 12:45 RCC (Rec: 10/09/18 12:59 RCC [email or web address]) Current Condition History of Current Condition Onset Date August 2018 Current Complaints low back pain History of Current Condition Pt is a 68 y/o male presenting to physical therapy with a c/ o low back pain. Pt notes pain started after moving from [facility] to the [facility], lifting boxes and furniture, and traveling in an sleeping on a different mattress. Pt notes that pain has been getting better over the past two weeks . Aggravating factors: prolonged sitting and extension. Relieving factors: stretching. Pt without any imaging at this point. Treatment Goals Patient/Caregiver Goals decrease pain Prior Functional Status Baseline Function- ADL's Independent Baseline Function- Mobility Independent Baseline Function- Gait community gait without device, no pain. Current Functional Impairments (Reported) Functional Limitations- Mobility/Gait some increase in pain with prolonged standing and walking PT-OP-C Subjective Start: 10/09/18 12:36 Freq: Status: Active Protocol: Document 11/08/18 12:00 DCW (Rec: 11/08/18 12:45 DCW [id number]) OP-PT Subjective Patient Comments Patient Comments Pt reports he has been doing well today, but notes yesterday wasn't as good, he believes due to spending a lot of time in his car. PT-OP-F Manual Assessment Start: 10/09/18 12:36 Freq: Status: Active Protocol: Document 11/04/18 15:10 RCC (Rec: 11/04/18 15:31 RCC [email or web address]) Manual Assessments Other Manual Assessments Other Manual Assessments R posterior ilial rotation. unable to ilicit R achilles DTR PT-OP-H Neuro Start: 10/09/18 12:36 Freq: Status: Active Protocol: Document 10/06/18 12:45 RCC (Rec: 10/09/18 12:59 RCC [email or web address]) Sensation Evaluation Gross Sensation Gross Sensation WNL Deep Tendon Reflex & Clonus Assessment Deep Tendon Reflex Bilateral Achilles Deep Tendon Reflex 2+ Normal Bilateral Patellar Deep Tendon Reflex 2+ Normal Ankle Clonus Bilateral Clonus Assessment Absent PT-OP-K Range of Motion Start: 10/09/18 12:36 Freq: Status: Active Protocol: Document 10/06/18 12:45 RCC (Rec: 10/09/18 12:59 RCC [email or web address]) Lumbar Spine Range of Motion Lumbar Spine Active Degrees Testing Position Standing Flexion 75 Extension 15 Comments pain upon return to neutral from extended position. PT-OP-L Special Tests Start: 10/09/18 12:36 Freq: Status: Active Protocol: Document 10/06/18 12:45 RCC (Rec: 10/09/18 12:59 RCC [email or web address]) Special Tests Lumbar Spine Special Tests SI provocation Test Results negative Slump Test Results negative Prone Instability Test Test Results positive Comments L3-5 Straight Leg Raise Test Results negative PT-OP-M Strength Start: 10/09/18 12:36 Freq: Status: Active Protocol: Document 10/06/18 12:45 RCC (Rec: 10/09/18 12:59 RCC [email or web address]) Hip Strength Hip Manual Muscle Testing Right Flexion (L2) 5 Normal External Rotation 4+ Good+ Internal Rotation 4 Good Left Flexion (L2) 5 Normal External Rotation 4+ Good+ Internal Rotation 4+ Good+ Knee Strength Knee Manual Muscle Testing Right Flexion (S2) 5 Normal Extension (L3) 5 Normal Left Flexion (S2) 5 Normal Extension (L3) 5 Normal Ankle/Foot Strength Ankle and Foot Manual Muscle Testing Right Dorsiflexion (L4) 5 Normal Left Dorsiflexion (L4) 5 Normal Toe Strength Toe Manual Muscle Testing Right Great Toe Extension 5 Normal Left Great Toe Extension 5 Normal PT-OP-Q Treatments Start: 10/09/18 12:36 Freq: Status: Active Protocol: Document 11/08/18 12:00 DCW (Rec: 11/08/18 12:45 DCW [id number]) Gym Equipment Shuttle Recovery Unilateral Squats Resistance 62# Shuttle Recovery Platform Stable Reps/Time VCs for TrA activation Bilateral Squats Resistance 100# Shuttle Recovery Platform Stable Reps/Time VCs for TrA activation Shuttle Balance Red Details Wide ROCAEL (EO/EC), Staggered Stance, Lateral Weight Shift Therapeutic Ball Pelvic Tilts/Circles Exercise Details Pelvic Tilts/Circles Ball Size/Color Green - 65 cm Body Position Sitting Bridging with Hamstring Curls Exercise Details Bridging with Hamstring Curls Ball Size/Color Red - 55 cm Body Position Supine Bridging on T-ball Exercise Details Bridging /c feet on T-ball Ball Size/Color Red - 55 cm Body Position Supine Therapeutic Exercises Standing Exercises Quad Stretch Standing Exercise Name Quad stretch HS stretch Side bilateral Reps/Minutes 2x30 sec each hip hike Standing Exercise Name hip hiking on stair Side bilateral Reps/Minutes 1x10 each Other Exercises Resisted Forward/Retro Walking Other Exercise Name Resisted Fwd/Retro Ambulation Side bilateral Resistance Green Equipment Used T-band Resisted Side-stepping Other Exercise Name Resisted Side-stepping Side bilateral Resistance Green Equipment Used T-band PT-OP-T Assessment and Plan Start: 10/09/18 12:36 Freq: Status: Active Protocol: Document 11/08/18 12:00 DCW (Rec: 11/08/18 12:45 DCW [id number]) Physical Therapy Assessment Impairments Impairments Pain ROM Soft Tissue Mobility Strength Goals Modified Oswestry Impairment Modified Oswestry: 14% perceived disability Production Hardener Goal (LTG) Pt will score 0% perceived disability related to back pain prior to d/c to demonstrate improvements with daily function and activities, return to prior level of function. LTG Duration 6 weeks walking Impairment tolerance to gait Short Term Goal (STG) pt will ambulate 15 min, 3 days per week for a home walking program without increased in low back pain STG Duration 3 weeks Nursing Home Goal (LTG) pt will ambulate outdoors 30 min, 5 days per week as part of a home walking program without low back pain prior to d/c LTG Duration 6 weeks lumbar ROM Impairment lumbar extension Nursing Home Goal (LTG) lumbar extension to 20+ degrees without pain upon return to neutral to demonstrate improved lumbar stabilization. LTG Duration 6 weeks hip strength Impairment bilateral hip weakness Nursing Home Goal (LTG) hip strength (IR and ER) to 5/ 5 with manual muscle testing prior to d/c. LTG Duration 6 weeks Assessment Summary Assessment Continued mild pain with certain activities, mainly extended sitting. Physical Therapy Plan Frequency and Duration Frequency of Treatment 2x/Week Duration of Treatment 6 weeks Plan of Care Start Date 10/06/18 Plan of Care End Date 11/17/18 Therapeutic Interventions Therapeutic Interventions Aquatic Therapy Gait Training Home Exercise Program Joint Mobilizations Manual Therapy Neuromuscular Re-education Patient/Caregiver Education Self-Care/Home Management Soft Tissue Mobilization Taping Therapeutic Activities Therapeutic Exercises Modalities Cold Pack/Ice Massage Electric Stimulation Hot Packs Traction- Mechanical Ultrasound Next Visit Focus/Plan Next Note Type Treatment Note Next Visit Plan Continue and advance LE and core strengthening, plan to add manual therapy to spine and additional flexibility training.
--- NOTE | 2018-11-11 16:00 | PT.OTN ---
Current Diagnoses Dorsalgia, unspecified (11/11/18) Physical Therapy Treatment Note PT-OP-A Visit Information Start: 10/09/18 12:36 Freq: Status: Active Protocol: Document 11/11/18 16:00 RCC (Rec: 11/12/18 13:48 RCC [email or web address]) Out-Patient Physical Therapy Visit Information Visit Information Visit Type Treatment Note Visit Start Time 15:20 Visit Stop Time 16:00 Total Visit Minutes 40 Visit Number 7 Number of BONE CHAR PULLER Visits 0 Evaluation Information Evaluation Date 10/06/18 PT-OP-B Current Condition Start: 10/09/18 12:36 Freq: Status: Active Protocol: Document 10/06/18 12:45 RCC (Rec: 10/09/18 12:59 RCC [email or web address]) Current Condition History of Current Condition Onset Date August 2018 Current Complaints low back pain History of Current Condition Pt is a 68 y/o male presenting to physical therapy with a c/ o low back pain. Pt notes pain started after moving from [facility] to the [facility], lifting boxes and furniture, and traveling in an sleeping on a different mattress. Pt notes that pain has been getting better over the past two weeks . Aggravating factors: prolonged sitting and extension. Relieving factors: stretching. Pt without any imaging at this point. Treatment Goals Patient/Caregiver Goals decrease pain Prior Functional Status Baseline Function- ADL's Independent Baseline Function- Mobility Independent Baseline Function- Gait community gait without device, no pain. Current Functional Impairments (Reported) Functional Limitations- Mobility/Gait some increase in pain with prolonged standing and walking PT-OP-C Subjective Start: 10/09/18 12:36 Freq: Status: Active Protocol: Document 11/11/18 16:00 RCC (Rec: 11/12/18 13:48 RCC [email or web address]) OP-PT Subjective Patient Comments Patient Comments Pt feels pretty good today, he has some tightness in the back but no actual pain. He feels ready for d/c. OP-PT Pain Assessment Location Bilateral Lower Back Intensity 0 Scale Used Numeric (1 - 10) PT-OP-F Manual Assessment Start: 10/09/18 12:36 Freq: Status: Active Protocol: Document 11/04/18 15:10 RCC (Rec: 11/04/18 15:31 RCC [email or web address]) Manual Assessments Other Manual Assessments Other Manual Assessments R posterior ilial rotation. unable to ilicit R achilles DTR PT-OP-H Neuro Start: 10/09/18 12:36 Freq: Status: Active Protocol: Document 10/06/18 12:45 RCC (Rec: 10/09/18 12:59 RCC [email or web address]) Sensation Evaluation Gross Sensation Gross Sensation WNL Deep Tendon Reflex & Clonus Assessment Deep Tendon Reflex Bilateral Achilles Deep Tendon Reflex 2+ Normal Bilateral Patellar Deep Tendon Reflex 2+ Normal Ankle Clonus Bilateral Clonus Assessment Absent PT-OP-K Range of Motion Start: 10/09/18 12:36 Freq: Status: Active Protocol: Document 11/11/18 16:00 RCC (Rec: 11/12/18 13:48 RCC [email or web address]) Lumbar Spine Range of Motion Lumbar Spine Active Degrees Testing Position Standing Flexion 75 Extension 25 Comments no pain upon standing from extension PT-OP-L Special Tests Start: 10/09/18 12:36 Freq: Status: Active Protocol: Document 10/06/18 12:45 RCC (Rec: 10/09/18 12:59 RCC [email or web address]) Special Tests Lumbar Spine Special Tests SI provocation Test Results negative Slump Test Results negative Prone Instability Test Test Results positive Comments L3-5 Straight Leg Raise Test Results negative PT-OP-M Strength Start: 10/09/18 12:36 Freq: Status: Active Protocol: Document 11/11/18 16:00 RCC (Rec: 11/12/18 13:48 RCC [email or web address]) Hip Strength Hip Manual Muscle Testing Right Flexion (L2) 5 Normal External Rotation 4+ Good+ Internal Rotation 5 Normal Left Flexion (L2) 5 Normal External Rotation 5 Normal Internal Rotation 5 Normal Knee Strength Knee Manual Muscle Testing Right Flexion (S2) 5 Normal Extension (L3) 5 Normal Left Flexion (S2) 5 Normal Extension (L3) 5 Normal Ankle/Foot Strength Ankle and Foot Manual Muscle Testing Right Dorsiflexion (L4) 5 Normal Left Dorsiflexion (L4) 5 Normal PT-OP-Q Treatments Start: 10/09/18 12:36 Freq: Status: Active Protocol: Document 11/11/18 16:00 RCC (Rec: 11/12/18 13:48 RCC [email or web address]) Gym Equipment Shuttle Recovery Unilateral Squats Resistance 75# Shuttle Recovery Platform Stable Reps/Time VCs for TrA activation Bilateral Squats Resistance 100# Shuttle Recovery Platform Stable Reps/Time VCs for TrA activation Shuttle Balance Red Details Wide ROCAEL (EO/EC), Staggered Stance, Lateral Weight Shift Therapeutic Exercises Supine Exercises TrA activation /c SLR Supine Exercise Name PPT /c TrA - Alternating SLR Sidelying Exercises Clamshell Sidelying Exercise Name Hip ER - Clamshell Side bilateral Resistance Lv 2 Equipment Used T-band Standing Exercises HS stretch Side bilateral Reps/Minutes 2x30 sec each hip hike Standing Exercise Name hip hiking on stair Side bilateral Reps/Minutes 1x10 each Other Exercises quadruped alternating LE Side bilateral Reps/Minutes 1x10 each Manual Therapy Treatment Other Other Manual Treatments LE MMT, lumbar spine ROM- 10 min PT-OP-T Assessment and Plan Start: 10/09/18 12:36 Freq: Status: Active Protocol: Document 11/11/18 16:00 RCC (Rec: 11/12/18 13:48 RCC [email or web address]) Physical Therapy Assessment Goals Modified Oswestry Impairment Modified Oswestry: 14% perceived disability Mcc Goal (LTG) Pt will score 0% perceived disability related to back pain prior to d/c to demonstrate improvements with daily function and activities, return to prior level of function. LTG Duration 6 weeks- good progress (8% @ d /c) walking Impairment tolerance to gait Short Term Goal (STG) pt will ambulate 15 min, 3 days per week for a home walking program without increased in low back pain STG Duration 3 weeks Mcc Goal (LTG) pt will ambulate outdoors 30 min, 5 days per week as part of a home walking program without low back pain prior to d/c LTG Duration 6 weeks-achieved, walking 40' per day with dog lumbar ROM Impairment lumbar extension Mcc Goal (LTG) lumbar extension to 20+ degrees without pain upon return to neutral to demonstrate improved lumbar stabilization. LTG Duration 6 weeks- goal achieved 25 deg. extension w/o pain upon return to neutral hip strength Impairment bilateral hip weakness Mcc Goal (LTG) hip strength (IR and ER) to 5/ 5 with manual muscle testing prior to d/c. LTG Duration 6 weeks- good progress, L hip ER 4+/5 all others 5/5 Progress Towards Goals Progress Towards Goals Progressing Toward Goals Assessment Summary Assessment Pt with 5/5 grade with manual muscle testing in the hips, knees, and ankles, except for 4+/5 grade with L hip ER which he has clamshells as part of his HEP to continue. He is walking daily for 40 min with his dog, no pain in low back. He is able to achieve WNL lumbar extension without pain upon return to neutral, demonstrating improved lumbar stability. Overall, pt has a HEP established and able to perform these activities on this date without cuing. Pt is comfortable with d/c, and this PT agreeable at this time . Physical Therapy Plan Discharge Physical Therapy Discharge Reasons Patient Request Discharge Comments very close to goals, pt able to perform HEP indep. to achieve strength goals.
== END 2018-11-11 16:50 ==
LOC: PHYS 15:15
PROVIDERS: PCP Student in an Organized Health Care Education/Training Program; Visit Provider Student in an Organized Health Care Education/Training Program
DX: M54.9 Dorsalgia, unspecified (principal)
CPT/HCPCS: 97110; 97112; 97140; 97161

== ENCOUNTER → 2018-11-25 08:42 | Outpatient (CLI) | payer MEDICARE, BC, SELFPAY ==
--- NOTE | 2018-11-25 08:44 | DI.MRI.S_ITS ---
PROCEDURE: MR LUMBAR SPINE WO CON INDICATIONS: Low back pain TECHNIQUE: Noncontrast sagittal T1 spin echo and T2 fast echo, sagittal STIR, axial T1 and T2 fast spin echo through the lumbar spine. In cases with scoliosis, additional coronal T2 fast spin echo may be performed. COMPARISON: None. FINDINGS: Image quality: Excellent. Alignment and Curvature: Possible transitional anatomy. L5 is partially sacralized. There is grade 1 retrolisthesis at T12-L1 and L1-L2. Bone Marrow: Mild compression deformity of L1, likely chronic. Degenerative endplate signal changes are present, most severe at inferior endplates of T12 and L1, and superior endplate of L1 and L2. There is a small intraosseous hemangioma in T12. No acute vertebral body compression fractures. Spinal Cord: Conus medullaris terminates at the T12 level. Visualized cord demonstrates normal signal and size. Paraspinous Soft Tissues: No paravertebral masses. T12-L1: Severe loss of disc height and disc desiccation. There is diffuse posterior disc bulge and disc osteophyte complex. Mild bilateral facet arthropathy and hypertrophy of ligamentum flavum. The central canal is izkz-mf-rpfwxcjd narrowed. Severe right and moderate left foraminal stenosis. L1-L2: Severe loss of disc height and disc desiccation. There is diffuse posterior disc bulge and disc osteophyte complex. Mild bilateral facet arthropathy and hypertrophy of ligamentum flavum. The central canal is ehahndaf-wd-zhsvjx in narrowed. Severe foraminal stenosis bilaterally. L2-L3: Mild loss of disc height and moderate disc desiccation. There is diffuse posterior disc bulge and disc osteophyte complex. Mild bilateral facet arthropathy and hypertrophy of ligamentum flavum. The central canal is rvdubmze-ly-tajpgify narrowed. Moderate bilateral foraminal stenosis. L3-L4: Mild loss of disc height and moderate disc desiccation. There is diffuse posterior disc bulge and disc osteophyte complex. There is a small annular fissure posterior centrally. Moderate bilateral facet arthropathy and hypertrophy of ligamentum flavum. The central canal is severity narrowed. Moderate bilateral foraminal stenosis. L4-L5: Mild loss of disc height and moderate disc desiccation. There is diffuse posterior disc bulge and disc osteophyte complex. There is a small annular fissure posterior centrally. Severe bilateral facet arthropathy. The central canal is severity narrowed. Severe bilateral foraminal stenosis. L5-S1: Normal appearance of intervertebral disc. Moderate bilateral facet arthropathy. No central canal stenosis or foraminal stenosis. IMPRESSION: 1. Multilevel degenerative disc disease and facet arthropathy as described. 2. Multilevel central canal stenosis, severe at L3-L4 and L4-L5, and vdrkdvps-th-gpuzji at L1-L2 and L2-L3. 3. Multilevel foraminal stenoses as described. 4. Mild chronic compression fracture of L1 vertebral body. 5. Possible transitional anatomy with sacralization of L5. Please confirm vertebral levels on radiographs before any surgery or interventional procedures. Dictated by: Zan Fairchild M.D. on 11/25/2018 at 13:25 Approved by: Zan Fairchild M.D. on 11/25/2018 at 18:25
== END ==
PROVIDERS: PCP Student in an Organized Health Care Education/Training Program; Visit Provider Student in an Organized Health Care Education/Training Program
DX: M54.5 Low back pain (principal)
CPT/HCPCS: 72148

== ENCOUNTER 2019-03-08 14:05 | Outpatient (CLI) | payer MEDICARE, BC, SELFPAY ==
[2019-03-08] VITALS (8 sets, daily range): BP systolic 128–161; BP diastolic 80–88; PULSE 68–85; RESP 16–18; O2SAT 97–100
--- NOTE | 2019-03-08 14:06 | DI.RAD.S_ITS ---
PROCEDURE: PAIN L/SI FACET INJ/BLK 1STL INDICATIONS: SPONDYLOSIS FINDINGS: Fluoroscopic spot filming was performed to verify placement of spinal needles at the right and left L4-5 and right L5-S1 level(s), as labeled on the films. Appropriate location(s) of the needle tip(s) was confirmed by injection of iodinated contrast. IMPRESSION: Successful needle tip localization for facet joint injections bilaterally at L4-5 and L5-S1. Dictated by: Edy Red M.D. on 03/08/2019 at 15:55 Approved by: Edy Red M.D. on 03/08/2019 at 15:56
[2019-03-08] MEDS: MIDAZOLAM 5 MG/5 ML VIAL IV (14:40)
[2019-03-08] MEDS: BETAMETHASONE 30 MG/5 ML MDV 12 MG INJ (14:44)
[2019-03-08] MEDS: IOPAMIDOL 15 ML VIAL 3 ML INJ (14:44)
[2019-03-08] MEDS: LIDOCAINE 1% 20 ML INJ 10 ML INJ (14:44)
[2019-03-08] MEDS: BUPIVACAINE 0.5% (PF) VIAL 2 ML INJ (14:45)
--- NOTE | 2019-03-08 14:56 | PC.NURSE ---
pt tolerated procedure well. Able to get up and off the table with standby assist. Transferred pt via wheelchair to pre procedure room for continued monitoring with Stormy MEJIA.
--- NOTE | 2019-03-08 15:04 | P.PCN_ITS ---
Procedures Date/Time Date of procedure: 03/08/19 Time of procedure: 15:02 General Procedure description: PROVIDER: Rome Jules DO Operative Note PREOP DIAGNOSIS 1. HNP WITH RADICULAR FEATURES, 2. MULTILEVEL CENTRAL STENOSIS, POST OP DIAGNOSIS 1. HNP WITH RADICULAR FEATURES, 2. MULTILEVEL CENTRAL STENOSIS, PROCEDURES 1. FLUORSCOPICALLY GUIDED CONTRAST CONTROLLED INTERLAMINAR EPIDURAL STEROID INJECTION - L5/S1 PHYSICIAN: Rome Jules, INDICATIONS Keith is referred by Dr. Clemens for treatment of Bilateral Foraminal Stenosis L>R LE symptoms. FINDINGS Multilevel Central Spinal Stenosis with Nerve Root Compression DESCRIPTION OF PROCEDURE Fluoroscopically guided, contrast-controlled L5/S1 translaminar epidural steroid injection. Following denial of allergy and review of potential side effects and complications, including, but not necessarily limited to, infection, allergic reaction, local tissue breakdown, temporary as well as permanent nerve injury, paralysis, stroke and possible , the patient indicated that the patient understood and agreed to proceed. An informed consent document was signed by the patient, witnessed by a nurse, and placed in the patient's chart. Additionally, other treatment options including modalities, medications, and physical therapy were reviewed with the patient. After review of previous anaesthesic history and IV conscious sedation the patient was deemed safe to proceed with todays procedure with IV conscious sedation as ASA class II designation. Safety time-out was performed to confirm patient ID, procedure to be performed and site of procedure. IV sedation was accomplished with a combination of 3mg of Versed administered by the RN after DO order, titrated to patient comfort during the course of the procedure while the patient remained responsive to all verbal commands. In the prone position, following sterile prep and drape of the lumbar region, the L5/S1 translaminar space was identified fluoroscopically. The skin was anesthetized via a 25-gauge, 1.5-inch needle with 1% lidocaine solution. At this point, a 22-gauge short bevel spinal needle was atraumatically introduced and advanced under fluoroscopic guidance into the region of the L5/S1 trans laminar space. Depth was confirmed on lateral view. Radiological data, including multiple fluoroscopic views of the lumbar spine, reveal a spinal needle at the L5/S1 translaminar space. Lateral views then show placement of the needle in the epidural space. Subsequent views show contrast material flowing superiorly and inferiorly in the epidural space. No vascular or intrathecal uptake is observed. At this point, using loss of resistance technique with saline and air, the epidural space was entered. This was confirmed following negative aspiration with injection of approximately 1.5 cc of Isovue 200, showing excellent epidural flow without vascular or intrathecal uptake. At this point, 1 cc of 1% lidocaine solution combined with 2cc or 20mg of dexamethasone was injected without incident. The patent tolerated the procedure without signs of symptoms of complications prior to transfer to the recovery area for further monitoring. The patient was then transferred to the recovery area where they were observed for an appropriate period of time after the injection. The patient reported a VAS score of 6 prior to the procedure and a post-procedure VAS of 0. Total Fluoroscopy Time: 11.8 seconds Total Conscious Sedation Time: 24min POST OP INSTRUCTIONS The patient was provided a Pain Log to continue to record their response to the target-specific procedure prior to follow-up visit with their referring physician. Additionally, specific post-injection care instructions and a contact number to our office were provided if concerns arise regarding possible complications associated with the procedure are suspected. Rome Jules DO Complications: none
--- NOTE | 2019-03-24 17:41 | P.PCN_ITS ---
Procedures Date/Time Date of procedure: 03/08/19 Time of procedure: 15:34 General Procedure description: PREOP DIAGNOSIS 1. FACET ARTHROPATHY 2. AXIAL LBP 3. MULTILEVEL DDD POST OP DIAGNOSIS 1. FACET ARTHROPATHY 2. AXIAL LBP 3. MULTILEVEL DDD PROCEDURES 1. FLUORSCOPICALLY GUIDED CONTRAST CONTROLLED FACET JOINT INJECTIONS BILATERAL L4/5, L5/S1 PHYSICIAN: Rome Jules, DO INDICATIONS Keith is referred by Dr. Clemens for treatment of Axial LBP FINDINGS Multilevel Facet Arthropathy with Clinically significant axial LBP DESCRIPTION OF PROCEDURE Fluoroscopically guided, contrast-controlled bilateral L4/5, L5/S1 facet joint injections. Following denial of allergy and review of potential side effects and complications, including, but not necessarily limited to, infection, allergic reaction, local tissue breakdown, stroke, temporary or permanent nerve injury, paralysis, and possible , the patient indicated that the patient understood and agreed to proceed. An informed consent document was signed by the patient, witnessed by a nurse, and placed in the patient's chart. Additionally, other treatment options including medications, modalities, and physical therapy were reviewed with the patient. After review of previous anaesthesic history and IV conscious sedation the patient was deemed safe to proceed with todays procedure with IV conscious sedation as ASA class II designation. Safety time-out was performed to confirm patient ID, procedure to be performed and site of procedure. IV sedation was accomplished with a combination of 3mg of Versed was administered by the RN after DO order, titrated to patient comfort during the course of the procedure while the patient remained responsive to all verbal commands In the prone position, following sterile prep and drape of the lumbar region, the posterior aspect of the L4/5, L5/S1 facet joints were identified fluoroscopically. The skin was anesthetized via a 25-gauge 1.5-inch needle with 1% lidocaine solution into the corresponding facet joints. At this point, a 22- gauge 3.5-inch spinal needle was atraumatically introduced and advanced under fluoroscopic guidance into the corresponding facet joints. Following negative aspiration, injections of approximately 0.2-cc of Isovue 200 confirmed interarticular placement without vascular uptake. The identical procedure was then performed at the L4/5, L5/S1 facet joints on the left. Radiological data, including multiple fluoroscopic views of the lumbosacral spine, reveal a spinal needle at the L4/5, L5/S1 facet joints bilaterally. Subsequent views show flow of contrast material both superiorly and inferiorly within the joint space without vascular or intrathecal uptake. At this point, a total of 0.5 cc including a mixture of 0.25cc Marcaine and 0.25cc betamethasone was injected without complication into each of the corresponding facet joints. The patient tolerated the procedure well without signs or symptoms of complications prior to transfer to the recovery area continued monitoring without incident. The patient was then transferred to the recovery area where they were observed for an appropriate period of time after the injection. The patient reported a VAS score of 7 prior to the procedure and a post- procedure VAS of 0. Total Fluoroscopy Time: 20.3 seconds Total Conscious Sedation Time: 24min POST OP INSTRUCTIONS The patient was provided a Pain Log to continue to record their response to the target-specific procedure prior to follow-up visit with their referring physician. Additionally, specific post-injection care instructions and a contact number to our office were provided if concerns arise regarding possible complications associated with the procedure are suspected. Rome Jules DO Complications: none
== END 2019-03-08 15:30 | disposition home or self-care (01) ==
LOC: RAD 14:06
PROVIDERS: PCP Student in an Organized Health Care Education/Training Program; Visit Provider Physical Medicine & Rehabilitation
DX: M47.816 Spondylosis without myelopathy or radiculopathy, lumbar region (principal); M47.817 Spondylosis without myelopathy or radiculopathy, lumbosacral region; M54.5 Low back pain; M51.36 Other intervertebral disc degeneration, lumbar region; M51.37 Other intervertebral disc degeneration, lumbosacral region
CPT/HCPCS: 64493; 64494; 99152; J0702; J2250; J3010

== ENCOUNTER 2019-04-13 10:29 | Outpatient (CLI) | payer MEDICARE, BC, SELFPAY ==
[2019-04-13] VITALS (8 sets, daily range): BP systolic 125–146; BP diastolic 74–90; PULSE 71–77; RESP 16–18; TEMP 36.1; O2SAT 97–99
--- NOTE | 2019-04-13 10:30 | DI.RAD.S_ITS ---
PROCEDURE: PAIN L/S FACET INJ/BLK 1ST KAI COMPARISON: None. INDICATIONS: SPONDYLOSIS FINDINGS: 6 intraoperative fluoroscopy images demonstrate needle placement at L4, L5 and S1. IMPRESSION: Fluoroscopy for pain management. Dictated by: Zan Fairchild M.D. on 04/13/2019 at 14:12 Approved by: Zan Fairchild M.D. on 04/13/2019 at 14:13
[2019-04-13] MEDS: fentaNYL 100 MCG/2 ML INJ 50 MCG IV (11:26)
[2019-04-13] MEDS: MIDAZOLAM 5 MG/5 ML VIAL IV (11:26)
[2019-04-13] MEDS: BUPIVACAINE 0.5% (PF) VIAL 2 ML INJ (11:32)
[2019-04-13] MEDS: LIDOCAINE 1% 20 ML INJ 10 ML INJ (11:32)
[2019-04-13] MEDS: IOPAMIDOL 15 ML VIAL 3 ML INJ (11:32)
[2019-04-13] MEDS: BETAMETHASONE 30 MG/5 ML MDV 12 MG INJ (11:33)
--- NOTE | 2019-04-13 11:43 | PC.NURSE ---
pt tolerated procedure well. Able to get off the table with standby assist. Transferred pt to pre procedure room via wheelchair for continued monitoring with Stormy MEJIA.
--- NOTE | 2019-04-13 11:50 | P.PCN_ITS ---
Procedures Date/Time Date of procedure: 04/13/19 Time of procedure: 11:49 General Procedure description: Procedure description: 1. FACET ARTHROPATHY PROCEDURES: 1. BILATERAL- L4, L5 and S1 MB BLOCKS PHYSICIAN: DO JUAN CARLOS Leigh is referred by for treatment of Bilateral Axial LBP. DESCRIPTION OF PROCEDURE Fluoroscopically guided, contrast-controlled bilateral L4, L5 and S1 medial branch blocks with 0.5cc of 0.5% Marcaine. Following denial of allergy and review of potential side effects and complications, including, but not necessarily limited to, infection, allergic reaction, local tissue breakdown, nerve injury, paralysis, stroke and possible , the patient indicated that the patient understood and agreed to proceed. An informed consent document was signed by the patient, witnessed by a nurse, and placed in the patient's chart. After review of previous anaesthesic history and IV conscious sedation the patient was deemed safe to proceed with todays procedure with IV conscious sedat ion as ASA class II designation. Safety time-out was performed to confirm patient ID, procedure to be performed and site of procedure. IV sedation was accomplished with a combination of 3mg of Versed and 50mcg of Fentanyl was administered by the RN after DO order, titrated to patient comfort during the course of the procedure while the patient remained responsive to all verbal commands In the prone position, following sterile prep and drape of the lumbar region, the right L4, L5 and S1 anatomical location of the medial branch of the dorsal ramus was identified fluoroscopically. Subsequently an anesthetic skin wheal using 1% lidocaine solution was initiated at each of the anatomical spots. Subsequently then a 22-gauge 3.5-inch spinal needle was atraumatically introduced and advanced under fluoroscopic guidance at each of the corresponding sites at the right L4, L5 and S1 MB. After negative aspiration, 0.2 cc of Isovue 200 was injected, confirming placement without vascular or intrathecal uptake. Subsequently then 0.5 cc of 0.5% Marcaine solution was injected at each of the corresponding sites at the right L4, L5 and S1 medial branch locations. The identical procedure was replicated on the left. The patient tolerated the procedure well without signs or symptoms of complications prior to transfer to the recovery area continued monitoring without incident. Post-procedure, the patient was monitored initiating provocative activities to measure the amount of relief from block of the facetogenic pain. The patient reported a VAS of 7 prior to the procedure and a post-procedure VAS of 1. It has been a pleasure to assist in the diagnostic and therapeutic care of your patient. Total Fluoroscopy Time: 24.8 seconds Total Conscious Sedation Time: 24min POST OP INSTRUCTIONS The patient was provided with a Pain Log to complete over the next several hours and subsequent days prior to the patient's follow up with the ordering physician. 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 The patient is aware, was provided, once again, with a Pain Log and will follow up with the referring physician for review and clinical correlation Rome Jules DO Complications: none
--- NOTE | 2019-04-13 11:55 | PC.NURSE ---
ACCEPTED CARE OF PT IN POST PROC AREA IN STABLE CONDITION
== END 2019-04-13 12:21 | disposition home or self-care (01) ==
LOC: RAD 10:30
PROVIDERS: PCP Student in an Organized Health Care Education/Training Program; Visit Provider Physical Medicine & Rehabilitation
DX: M47.816 Spondylosis without myelopathy or radiculopathy, lumbar region (principal); M47.817 Spondylosis without myelopathy or radiculopathy, lumbosacral region
CPT/HCPCS: 64493; 64494; 64495; 99152; J0702; J2250; J3010

== ENCOUNTER 2019-05-04 08:59 | Outpatient (CLI) | payer MEDICARE, BC, SELFPAY ==
[2019-05-04] VITALS (8 sets, daily range): BP systolic 121–146; BP diastolic 73–90; PULSE 67–77; RESP 16–18; TEMP 36; O2SAT 96–100
--- NOTE | 2019-05-04 09:00 | DI.RAD.S_ITS ---
PROCEDURE: PAIN L/S TRANSFORAMINAL INJECT INDICATIONS: SPINAL STENOSIS FINDINGS: Fluoroscopic spot filming was performed to verify placement of spinal needles at the right L5-S1 level(s), as labeled on the films. Appropriate location(s) of the needle tip(s) was confirmed by injection of iodinated contrast. IMPRESSION: Fluoroscopy for pain management. Dictated by: Zan Fairchild M.D. on 05/04/2019 at 15:24 Approved by: Zan Fairchild M.D. on 05/04/2019 at 15:25
[2019-05-04] MEDS: MIDAZOLAM 5 MG/5 ML VIAL IV (09:51)
[2019-05-04] MEDS: fentaNYL 100 MCG/2 ML INJ 50 MCG IV (09:52)
[2019-05-04] MEDS: BETAMETHASONE 30 MG/5 ML MDV 12 MG INJ (10:00)
[2019-05-04] MEDS: IOPAMIDOL 15 ML VIAL 3 ML INJ (10:00)
[2019-05-04] MEDS: BUPIVACAINE 0.25% (PF) VIAL 2 ML INJ (10:00)
--- NOTE | 2019-05-04 10:09 | PC.NURSE ---
ASSISTING PT OFF TABLE AND TRANSPORTING TO POST PROC AREA IN STABLE CONDITION
--- NOTE | 2019-05-04 10:14 | P.PCN_ITS ---
Procedures Date/Time Date of procedure: 05/04/19 Time of procedure: 10:13 General Procedure description: PREOP DIAGNOSIS 1. FORMAINAL STENOSIS WITH LE SYMPTOMS, POST OP DIAGNOSIS 1. FORMAINAL STENOSIS WITH LE SYMPTOMS, PROCEDURES 1.FLUOROSCOPICALLY GUIDED CONTRAST CONTROLLED TRANSFORAMINAL EPIDURAL STEROID INJECTION - RIGHT L5/S1 TFESI PHYSICIAN: Rome Jules DO INDICATIONS: Keith is referred by Dr. Clemens for treatment of Foraminal Stenosis with right LE Symptoms FINDINGS Foraminal Nerve Root Compression secondary to disc disease and facet hypertrophy DESCRIPTION OF PROCEDURE Following review of allergy and review of potential side effects and complications, including, but not necessarily limited to, infection, allergic reaction, local tissue breakdown, stroke, temporary or permanent nerve injury, paralysis, and possible , the patient indicated that the patient understood and agreed to proceed. An informed consent document was signed by the patient, witnessed by a nurse, and placed in the patient's chart. Additionally, other treatment options including medications, modalities, and physical therapy were reviewed with the patient. After review of previous anaesthesic history and IV conscious sedation the patient was deemed safe to proceed with todays procedure with IV conscious sedation as ASA class II designation. Safety time-out was performed to confirm patient ID, procedure to be performed and site of procedure. IV sedation was accomplished with a combination of 2mg of Versed and 50,cg of Fentanyl was administered by the RN after DO order, titrated to patient comfort during the course of the procedure while the patient remained responsive to all verbal commands In the prone position following sterile prep and drape of the lumbar region, the right L5/S1 posterior neuroforamen was identified fluoroscopically. The skin was anesthetized via a 25-gauge 1.5-inch needle with 1% lidocaine solution. At this point, a 25-gauge 3.5-inch spinal needle was atraumatically introduced and advanced under fluoroscopic guidance through the posterior right L5/S1 neuroforamen to approximately the anterior aspect of the canal. Depth was confirmed on lateral view. Following negative aspiration, injection of approximately 1.5 cc of Isovue 200 under live fluoroscopy in the AP view confirmed excellent flow along the nerve root, into the epidural space without vascular or intrathecal uptake observed Radiological data, including multiple fluoroscopic views of the lumbosacral spine, reveal a spinal needle at the right L5/S1 posterior neuroforamen. Subsequent views show flow of contrast material flowing superiorly and inferiorly along the nerve root confirming epidural flow. Subsequently, a test dose of 1.5 cc of 1% lidocaine solution was administered and patient was observed for two minutes for signs or symptoms of complications, including abdominal pain, shortness of breath, bilateral upper or lower extremity weakness, nausea and vomiting, prior to steroid injection. At this po int, a total of 3cc or 18mg of betamethasone was injected without incident. The procedure tolerated the procedure well without signs or symptoms of complications prior to transfer to the recovery area continued monitoring without incident. The patient was then transferred to the recovery area where they were observed for an appropriate time after the injection. The patient reported a VAS score of 7 prior to the procedure and a post-procedure VAS of 0. Total Fluoroscopy Time: 20.9 seconds Total Conscious Sedation Time: 24min POST OP INSTRUCTIONS The patient was provided a Pain Log to continue to record their response to the target-specific procedure prior to follow-up visit with their referring physician. Additionally, specific post-injection care instructions and a contact number to our office were provided if concerns arise regarding possible complications associated with the procedure are suspected. Rome Jules DO Complications: none
--- NOTE | 2019-05-04 10:20 | PC.NURSE ---
Pt returned from procedure awake and alert, his right leg is a little numb but he is able to weight bear. He was able to transfer from w/c to chair with standby assist. Resumed monitoring from Stormy MEJIA.
== END 2019-05-04 10:40 ==
LOC: RAD 09:00
PROVIDERS: PCP Student in an Organized Health Care Education/Training Program; Visit Provider Physical Medicine & Rehabilitation
DX: M48.07 Spinal stenosis, lumbosacral region (principal); M51.17 Intervertebral disc disorders with radiculopathy, lumbosacral region; M48.061 Spinal stenosis, lumbar region without neurogenic claudication
CPT/HCPCS: 64483; 99152; J0702; J2250; J3010

== ENCOUNTER 2019-08-03 07:29 | Outpatient (CLI) | payer MEDICARE, BC, SELFPAY ==
[2019-08-03] VITALS (7 sets, daily range): BP systolic 121–161; BP diastolic 78–99; PULSE 66–87; RESP 16; TEMP 36.2; O2SAT 96–98
--- NOTE | 2019-08-03 07:32 | DI.RAD.S_ITS ---
PROCEDURE: PAIN L/S MED/LAT N RFA BILAT INDICATIONS: SPONDYLOSIS FINDINGS: Fluoroscopic spot filming was performed to verify placement of spinal needles at the right L4, L5 and S1 regions 4 medial branch block procedures as labeled on the films. Appropriate location(s) of the needle tip(s) was confirmed by injection of iodinated contrast. IMPRESSION: Appropriate needle tip localization for medial branch of procedures on the right from L4-S1. Dictated by: Edy Red M.D. on 08/03/2019 at 10:22 Approved by: Edy Red M.D. on 08/03/2019 at 10:23
[2019-08-03] MEDS: MIDAZOLAM 5 MG/5 ML VIAL IV (08:56)
[2019-08-03] MEDS: fentaNYL 100 MCG/2 ML INJ 50 MCG IV (08:56)
[2019-08-03] MEDS: LIDOCAINE 1% 20 ML 10 ML INJ (09:07)
[2019-08-03] MEDS: BETAMETHASONE 30 MG/5 ML MDV 12 MG INJ (09:08)
[2019-08-03] MEDS: BUPIVACAINE 0.5% (PF) VIAL 5 ML INJ (09:08)
--- NOTE | 2019-08-03 09:14 | PC.NURSE ---
ASSISTING PT OFF TABLE AND TRANSPORTING TO POST PROC AREA IN STABLE CONDITION
--- NOTE | 2019-08-03 09:23 | P.PCN_ITS ---
Procedures Date/Time Date of procedure: 08/03/19 Time of procedure: 09:23 General Procedure description: PREOP DIAGNOSIS 1. RECALCITRANT FACET ARTHROPATHY, POST OP DIAGNOSIS 1. RECALCITRANT FACET ARTHROPATHY, PROCEDURES 1. RIGHT L4 AND L5 MEDIAL BRANCH RADIOFREQUENCY NEUROTOMY AND RIGHT S1 DORSAL RAMUS BRANCH RADIOFREQUENCY NEUROTOMY, SURGEON: Rome Jules, DO INDICATIONS Keith is referred by for treatment of facet arthropathy. DESCRIPTION OF PROCEDURE Right L4 and L5 medial branch radiofrequency neurotomy and right S1 dorsal ramus branch radiofrequency neurotomy under fluoroscopy with conscious sedation. The patient is well known to this clinic having undergone previous facet injections with good but temporary relief. The patient has experienced appropriate, concordant relief with previous facet and median branch blocks but the patient's pain has been recalcitrant to further conservative measures. Therefore, based upon the patient's relief and persistent symptoms, the patient is considered an appropriate candidate for facet rhizotomy. All of the patient's questions regarding the risks versus benefits of the procedure, including, but not limited to, bleeding, infection, temporary as well as lasting nerve injury, paralysis, stroke, and , as well treatment alternatives were answered to satisfaction. After review of previous anaesthesic history and IV conscious sedation the patient was deemed safe to proceed with todays procedure with IV conscious sedation as ASA class II designation. Safety time-out was performed to confirm patient ID, procedure to be performed and site of procedure. IV sedation was accomplished with a combination of 3mg of Versed and 50mcg of Fentanyl was administered by the RN after DO order, titrated to patient comfort during the course of the procedure while the patient remained responsive to all verbal commands. After obtaining informed consent, denial of pertinent drug allergies, as well as being made aware of the potential risks of bleeding, infection, spinal cord trauma, paralysis, temporary and permanent nerve damage, seizure, stroke, and possible , the patient was brought to the fluoroscopy suite and positioned prone on the fluoroscopy table. The lumbar region was prepped with Betadine and covered with a fenestrated drape in the usual sterile fashion. Appropriate monitors applied including pulse oximeter, pulse, and blood pressure for regular monitoring throughout the procedure. After local infiltration using 1% lidocaine, under fluoroscopic guidance, a 10- cm RF insulated needle with a 10-mm active tip was positioned parallel to the junction of the right sacral ala and the superior articulating process where the S1 dorsal ramus resides. Needle placement was confirmed with sensory stimulation at 50 Hz, with motor stimulation of .5v on the right which produced local stimulation without radicular component. The stimulation was then increased to 1.5v with, once again, only local multifidus stimulation without radicular component. This was then followed by two discreet lesions performed at 80 degrees Celsius for 90 seconds each. The needle was then removed and the identical procedure was performed along the length of the right L5 medial branch with motor stimulation at .7v on the right. The identical procedure was once again performed along the length of the right L4 medial branch with motor stimulation of .5v on the right. The patient tolerated the procedure well without signs or symptoms of complications prior to transfer to the recovery area continued monitoring without incident. The patient was then transferred to the recovery area where they were observed for an appropriate period of time after the injection. The patient was then transferred to the recovery area where they were observed for an appropriate period of time after the injection. The patient reported a VAS score of 9 prior to the procedure and a post- procedure VAS of 0. Total Fluoroscopy Time: 31 seconds Total Conscious Sedation Time: 45min POST OP INSTRUCTIONS The patient was provided a Pain Log to continue to record the patient's response to the target-specific procedure prior to the patient's follow-up visit with the referring physician. Additionally, specific post-injection care instructions and a contact number to our office were provided if concerns arise regarding possible complications associated with the procedure are suspected. Rome Jules DO Complications: none
--- NOTE | 2019-08-03 09:53 | PC.NURSE ---
Pt returned via wheelchair post procedure at 0920. Patient is alert and able to get from wheelchair to chair with standby assist.
== END 2019-08-03 10:52 | disposition home or self-care (01) ==
PROVIDERS: PCP Student in an Organized Health Care Education/Training Program; Visit Provider Physical Medicine & Rehabilitation
DX: M47.817 Spondylosis without myelopathy or radiculopathy, lumbosacral region (principal); M47.816 Spondylosis without myelopathy or radiculopathy, lumbar region
CPT/HCPCS: 64635; 64636; 99152; 99153; J0702; J2250; J3010

== ENCOUNTER → 2019-08-30 09:49 | Outpatient (CLI) | payer MEDICARE, BC, SELFPAY ==
[2019-08-30 11:29] LABS: BUN Creatinine Ratio 24.4 (6-22); Blood Urea Nitrogen 22 mg/dL (9-20); Carbon Dioxide 30 mmol/L (22-32); Chloride 100 mmol/L (98-107); Cholesterol 137 mg/dL (140-199); Estimated Glomerular Filt Rate > 60.0 mL/min (>60); Glucose 80 mg/dL (80-110); HDL Cholesterol 46 mg/dL (40-60); HEMOLYSIS < 15 (0-50); LDL Cholesterol Calculated 76 mg/dL (<100); Sodium 140 mmol/L (137-145); Triglycerides 75 mg/dL (35-150)
[2019-08-30 11:30] LABS: Potassium 5.8 mmol/L (3.4-5.1)
[2019-08-30 11:58] LABS: Prostate Specific Antigen Scrn 1.46 ng/mL (0.1-4.0)
== END ==
PROVIDERS: PCP Student in an Organized Health Care Education/Training Program; Visit Provider Student in an Organized Health Care Education/Training Program
DX: E78.5 Hyperlipidemia, unspecified (principal); Z12.5 Encounter for screening for malignant neoplasm of prostate; Z79.899 Other long term (current) drug therapy
CPT/HCPCS: 36415; 80048; 80061; G0103

== ENCOUNTER 2020-01-18 07:49 | Outpatient (CLI) | payer MEDICARE, BC, SELFPAY ==
[2020-01-18] VITALS (9 sets, daily range): BP systolic 103–147; BP diastolic 73–83; PULSE 70–82; RESP 16–18; TEMP 36.1; O2SAT 95–100
--- NOTE | 2020-01-18 07:53 | DI.RAD.S_ITS ---
PROCEDURE: PAIN L/S TRANSFORAMINAL INJECT INDICATIONS: SPINAL STENOSIS FINDINGS: Fluoroscopic spot filming was performed to verify placement of spinal needles at the L4-L5 level(s), as labeled on the films. Appropriate location(s) of the needle tip(s) was confirmed by injection of iodinated contrast. IMPRESSION: Fluoroscopy for pain management. Dictated by: Zan Fairchild M.D. on 01/18/2020 at 11:21 Approved by: Zan Fairchild M.D. on 01/18/2020 at 11:22
[2020-01-18] MEDS: MIDAZOLAM 5 MG/5 ML VIAL IV (08:51)
[2020-01-18] MEDS: BUPIVACAINE 0.25% (PF) VIAL 2 ML INJ (08:56)
[2020-01-18] MEDS: DEXAMETHASONE 10 MG/ML VIAL 20 MG INJ (08:56)
[2020-01-18] MEDS: BETAMETHASONE 30 MG/5 ML MDV 6 MG INJ (08:56)
[2020-01-18] MEDS: IOPAMIDOL 15 ML VIAL 3 ML INJ (08:56)
--- NOTE | 2020-01-18 08:58 | PC.NURSE ---
ASSISTING PT OFF TABLE AND TRANSPORTING TO POST PROC AREA IN STABLE CONDITION. PASSING RN CARE OF PT OFF TO MARIAJOSE Juarez RN.
--- NOTE | 2020-01-18 09:00 | P.PCN_ITS ---
Procedures Date/Time Date of procedure: 01/18/20 Time of procedure: 09:00 General Procedure description: PREOP DIAGNOSIS 1. FORMAINAL STENOSIS WITH LE SYMPTOMS POST OP DIAGNOSIS 1. FORMAINAL STENOSIS WITH LE SYMPTOMS PROCEDURES 1. FLUOROSCOPICALLY GUIDED CONTRAST CONTROLLED TRANSFORAMINAL EPIDURAL STEROID INJECTION - RIGHT L4/5 TFESI PHYSICIAN: Rome Jules DO INDICATIONS: Keith is referred by Dr. Clemens for treatment of Foraminal Stenosis with Right LE Symptoms FINDINGS Foraminal Nerve Root Compression secondary to disc disease and facet hypertrophy DESCRIPTION OF PROCEDURE: Following review of allergy and review of potential side effects and complications, including, but not necessarily limited to, infection, allergic reaction, local tissue breakdown, stroke, temporary or permanent nerve injury, paralysis, and possible , the patient indicated that the patient understood and agreed to proceed. An informed consent document was signed by the patient, witnessed by a nurse, and placed in the patient's chart. Additionally, other treatment options including medications, modalities, and physical therapy were reviewed with the patient. After review of previous anaesthesic history and IV conscious sedation the patient was deemed safe to proceed with todays procedure with IV conscious sedation as ASA class II designation. Safety time-out was performed to confirm patient ID, procedure to be performed and site of procedure. IV sedation was accomplished with a combination of 3mg of Versed was administered by the RN after DO order, titrated to patient comfort during the course of the procedure while the patient remained responsive to all verbal commands In the prone position following sterile prep and drape of the lumbar region, the Right L4/5 posterior neuroforamen was identified fluoroscopically. The skin was anesthetized via a 25-gauge 1.5-inch needle with 1% lidocaine solution. At this point, a 25-gauge 3.5-inch spinal needle was atraumatically introduced and advanced under fluoroscopic guidance through the posterior Right L4/5 neuroforamen to approximately the anterior aspect of the canal. Depth was confirmed on lateral view. Following negative aspiration, injection of approximately 1.5 cc of Isovue 200 under live fluoroscopy in the AP view confirmed excellent flow along the nerve root, into the epidural space without vascular or intrathecal uptake observed Radiological data, including multiple fluoroscopic views of the lumbosacral spine, reveal a spinal needle at the right L4/5 posterior neuroforamen. Subsequent views show flow of contrast material flowing superiorly and inferiorly along the nerve root confirming epidural flow. Subsequently, a test dose of 1.5 cc of 1% lidocaine solution was administered and patient was observed for two minutes for signs or symptoms of complications, including abdominal pain, shortness of breath, bilateral upper or lower extremity weakness, nausea and vomiting, prior to steroid injection. At this point, a total of 3cc or 20mg of dexamethasone and 6mg of betamethasone was injected without incident. The procedure tolerated the procedure well without signs or symptoms of complications prior to transfer to the recovery area continued monitoring without incident.The patient was then transferred to the recovery area where they were observed for an appropriate time after the injection. The patient reported a VAS score of 7 prior to the procedure and a post- procedure VAS of 0. Total Fluoroscopy Time: 6 seconds Total Conscious Sedation Time: 24min POST OP INSTRUCTIONS The patient was provided a Pain Log to continue to record their response to the target-specific procedure prior to follow-up visit with their referring physician. Additionally, specific post-injection care instructions and a contact number to our office were provided if concerns arise regarding possible complications associated with the procedure are suspected. Rome Jules DO Complications: none
--- NOTE | 2020-01-18 13:40 | PC.NURSE ---
0902 returned from procedure via w/c able to transfer self to recliner, snacks provided and tolerated, assumed care from Stormy arrived pain free.
== END 2020-01-18 09:31 | disposition home or self-care (01) ==
LOC: RAD 07:53
PROVIDERS: PCP Student in an Organized Health Care Education/Training Program; Referring Provider Physical Medicine & Rehabilitation; Visit Provider Physical Medicine & Rehabilitation
DX: M48.061 Spinal stenosis, lumbar region without neurogenic claudication (principal); M51.16 Intervertebral disc disorders with radiculopathy, lumbar region
CPT/HCPCS: 64483; 99152; J0702; J1100; J2250; J3010

== ENCOUNTER → 2020-03-22 09:48 | Outpatient (CLI) | payer MEDICARE, BC, SELFPAY ==
--- NOTE | 2020-03-22 09:50 | DI.MRI.S_ITS ---
PROCEDURE: MR LUMBAR SPINE WO CON INDICATIONS: Spinal Stenosis TECHNIQUE: Noncontrast sagittal T1 spin echo and T2 fast echo, sagittal STIR, axial T1 and T2 fast spin echo through the lumbar spine. In cases with scoliosis, additional coronal T2 fast spin echo may be performed. COMPARISON: [facility], MR, MR LUMBAR SPINE WO CON, 11/25/2018, 8:49. [facility], CR, XR LUMBAR SPINE 2 OR 3 VIEWS, 12/07/2018, 9:48. FINDINGS: Image quality: Excellent. Alignment and Curvature: There is grade 1 L5-S1 anterolisthesis secondary to facet hypertrophy. There is trace L1-L2, L2-L3, L3-L4 and L4-L5 retrolisthesis secondary to facet hypertrophy. There is convex left curvature of the upper lumbar spine. Bone Marrow: Reactive endplate change is noted adjacent to the L1-L2, L2-L3 and L5-S1 discs.. No acute vertebral body compression fractures. Spinal Cord: Conus medullaris terminates at the L1 level. Visualized cord demonstrates normal signal and size. Paraspinous Soft Tissues: No paravertebral masses. L1-L2: Loss of disc signal and height. Mild, diffuse disc bulge. Mild bilateral facet hypertrophy. Mild narrowing of the central canal. Severe right and mild left neural foraminal narrowing with compression of the exiting right L1 nerve root. L2-L3: Loss of disc signal and height. Mild, diffuse disc bulge. Mild bilateral facet hypertrophy. Mild ligamentum flavum hypertrophy. Mild to moderate narrowing of the central canal. Moderate bilateral neural foraminal narrowing. No neural compression. L3-L4: Loss of disc signal and slight loss of disc height. Mild to moderate diffuse disc bulge. Mild bilateral facet hypertrophy. Moderate narrowing of the central canal. Moderate right and severe left neural foraminal narrowing with compression of the exiting left L3 nerve root. L4-L5: Loss of disc signal. Moderate, diffuse disc bulge. Small left central disc protrusion. Moderate bilateral facet hypertrophy. Moderate ligamentum flavum hypertrophy. Severe narrowing of the central canal with slight compression of the nerve roots of the cauda equina. Mild to moderate right and severe left neural foraminal narrowing with compression of the exiting left L4 nerve root. L5-S1: Loss of disc signal. Mild, diffuse disc bulge with severe bilateral facet hypertrophy. Severe narrowing of the central canal with compression of the nerve roots of the cauda equina. Severe bilateral neural foraminal narrowing with compression of the exiting L5 nerve roots. IMPRESSION: 1. Grade I L5-S1 degenerative spondylolisthesis. Trace L1-L2, L2-L3, L3-L4 and L4-L5 degenerative spondylolisthesis. 2. Multilevel degenerative disc disease. 3. Multilevel facet arthropathy. 4. Severe L4-L5 and L5-S1 neural foraminal narrowing with compression of the nerve roots of the cauda equina. 5. Severe left L3-L4 neural foraminal narrowing with compression of the left L3 nerve root. Severe left L4-L5 neural foraminal narrowing with compression of the exiting left L4 nerve root. Severe bilateral L5-S1 neural foraminal narrowing with compression of the exiting bilateral L5 nerve roots. Dictated by: Palak Ag MD, PhD on 03/22/2020 at 14:11 Approved by: Palak Ag MD, PhD on 03/22/2020 at 14:17
== END ==
PROVIDERS: PCP Student in an Organized Health Care Education/Training Program; Referring Provider Physical Medicine & Rehabilitation; Visit Provider Physical Medicine & Rehabilitation
DX: M43.17 Spondylolisthesis, lumbosacral region (principal); M48.061 Spinal stenosis, lumbar region without neurogenic claudication; M48.07 Spinal stenosis, lumbosacral region; M51.37 Other intervertebral disc degeneration, lumbosacral region; M51.36 Other intervertebral disc degeneration, lumbar region; M47.816 Spondylosis without myelopathy or radiculopathy, lumbar region; M47.817 Spondylosis without myelopathy or radiculopathy, lumbosacral region
CPT/HCPCS: 72148

== ENCOUNTER → 2020-04-27 10:47 | Outpatient (CLI) | payer MEDICARE, BC, SELFPAY ==
[2020-04-28 23:22] LABS: COVID19 Sendout Not Detected (Not Detect)
== END ==
PROVIDERS: PCP Student in an Organized Health Care Education/Training Program; Visit Provider Physician Assistant
DX: Z01.818 Encounter for other preprocedural examination (principal)
CPT/HCPCS: 87635

== ENCOUNTER 2020-04-30 14:34 | Outpatient (CLI) | payer MEDICARE, BC, SELFPAY ==
[2020-04-30] VITALS (8 sets, daily range): BP systolic 132–151; BP diastolic 80–93; PULSE 68–80; RESP 12–16; TEMP 36.6; O2SAT 97–100
--- NOTE | 2020-04-30 14:36 | DI.RAD.S_ITS ---
PROCEDURE: PAIN L/S FACET INJ/BLK 1ST KAI COMPARISON: [facility], XA, PAIN L/S FACET INJ/BLK 1ST KAI, 04/13/2019, 11:38. INDICATIONS: SPONDYLOSIS FINDINGS: Bilateral L1-2 and L2-L3 facet joint injections were performed. IMPRESSION: Successful needle tip localization for 2 level bilateral facet joint injections, lumbosacral spine, 4 total procedures. Dictated by: Edy Red M.D. on 04/30/2020 at 16:51 Approved by: Edy Red M.D. on 04/30/2020 at 17:21
[2020-04-30] MEDS: MIDAZOLAM 5 MG/5 ML VIAL IV (15:04)
[2020-04-30] MEDS: fentaNYL 100 MCG/2 ML INJ 50 MCG IV (15:04)
[2020-04-30] MEDS: IOPAMIDOL 15 ML VIAL 3 ML INJ (15:11)
[2020-04-30] MEDS: LIDOCAINE 1% 20 ML 10 ML INJ (15:11)
[2020-04-30] MEDS: BETAMETHASONE 30 MG/5 ML MDV 12 MG INJ (15:11)
--- NOTE | 2020-04-30 15:17 | PC.NURSE ---
ASSISTING PT OFF TABLE AND TRANSPORTING TO POST PROC AREA IN STABLE CONDITION. PASSING RN CARE OF PT OFF TO JACKIE MENARD.
--- NOTE | 2020-04-30 15:23 | P.PCN_ITS ---
Procedures Date/Time Date of procedure: 04/30/20 Time of procedure: 15:23 General Procedure description: PREOP DIAGNOSIS 1. FACET ARTHROPATHY, 2. AXIAL LBP, 3. MULTILEVEL DDD, POST OP DIAGNOSIS 1. FACET ARTHROPATHY, 2. AXIAL LBP, 3. MULTILEVEL DDD, PROCEDURES 1. FLUORSCOPICALLY GUIDED CONTRAST CONTROLLED FACET JOINT INJECTIONS BILATERAL L1/2, L2/3 SURGEON: Rome Jules, INDICATION Keith is referred by is referred for treatment of Axial LBP FINDINGS Multilevel Facet Arthropathy with Clinically significant axial LBP DESCRIPTION OF PROCEDURE Fluoroscopically guided, contrast-controlled bilateral L1/2, L2/3 facet joint injections. Following review of allergy and review of potential side effects and complications, including, but not necessarily limited to, infection, allergic reaction, local tissue breakdown, stroke, temporary or permanent nerve injury, paralysis, and possible , the patient indicated that the patient understood and agreed to proceed. An informed consent document was signed by the patient, witnessed by a nurse, and placed in the patient's chart. Additionally, other treatment options including medications, modalities, and physical therapy were reviewed with the patient. After review of previous anaesthesic history and IV conscious sedation the patient was deemed safe to proceed with todays procedure with IV conscious sedation as ASA class II designation. Safety time-out was performed to confirm patient ID, procedure to be performed and site of procedure. IV sedation was accomplished with a combination of 2mg of Versed and 50mcg of Fentanyl administered by the RN after DO order, titrated to patient comfort during the course of the procedure while the patient remained responsive to all verbal commands In the prone position, following sterile prep and drape of the lumbar region, the posterior aspect of the L1/2, L2/3 facet joints were identified fluoroscopically. The skin was anesthetized via a 25-gauge 1.5-inch needle with 1% lidocaine solution into the corresponding facet joints. At this point, a 22- gauge 3.5-inch spinal needle was atraumatically introduced and advanced under fluoroscopic guidance into the corresponding facet joints. Following negative aspiration, injections of approximately 0.2-cc of Isovue 200 confirmed interarticular placement without vascular uptake. The identical procedure was then performed at the L2/3, L3/4 facet joints on the left. Radiological data, including multiple fluoroscopic views of the lumbosacral spine, reveal a spinal needle at the L1/2, L2/3 facet joints bilaterally. Subsequent views show flow of contrast material both superiorly and inferiorly within the joint space without vascular or intrathecal uptake. At this point, a total of 0.5 cc including a mixture of 0.25cc Marcaine and 0.25cc betamethasone was injected without complication into each of the corresponding facet joints. The patient tolerated the procedure well without signs or symptoms of complications prior to transfer to the recovery area continued monitoring without incident. The patient was then transferred to the recovery area where they were observed for an appropriate period of time after the injection. The patient reported a VAS score of 7 prior to the procedure and a post-procedure VAS of 0. Total Fluoroscopy Time: 8 seconds Total Conscious Sedation Time: 24min POST OP INSTRUCTIONS The patient was provided a Pain Log to continue to record their response to the target-specific procedure prior to follow-up visit with their referring physician. Additionally, specific post-injection care instructions and a contact number to our office were provided if concerns arise regarding possible complications associated with the procedure are suspected. Rome Jules DO Complications: none
[2020-04-30] MEDS: BUPIVACAINE 0.5% (PF) VIAL 2 ML INJ (15:29)
== END 2020-04-30 15:40 | disposition home or self-care (01) ==
LOC: RAD 14:35
PROVIDERS: PCP Student in an Organized Health Care Education/Training Program; Referring Provider Physical Medicine & Rehabilitation; Visit Provider Physical Medicine & Rehabilitation
DX: M47.816 Spondylosis without myelopathy or radiculopathy, lumbar region (principal); M54.5 Low back pain; M51.36 Other intervertebral disc degeneration, lumbar region
CPT/HCPCS: 64493; 64494; 99152; J0702; J2250; J3010

== ENCOUNTER → 2020-07-20 11:22 | Outpatient (CLI) | payer MEDICARE, BC, SELFPAY ==
[2020-07-22 06:17] LABS: COVID19 Sendout Not Detected (Not Detect)
== END ==
PROVIDERS: PCP Student in an Organized Health Care Education/Training Program; Visit Provider Nurse Practitioner
DX: Z11.59 Encounter for screening for other viral diseases (principal)
CPT/HCPCS: 87635

== ENCOUNTER 2020-07-23 08:15 | Outpatient (CLI) | payer MEDICARE, BC, SELFPAY ==
[2020-07-23] VITALS (8 sets, daily range): BP systolic 133–170; BP diastolic 62–93; PULSE 52–76; RESP 7–24; TEMP 36.7; O2SAT 96–100
--- NOTE | 2020-07-23 08:16 | DI.RAD.S_ITS ---
PROCEDURE: PAIN L/S FACET INJ/BLK 1ST KAI COMPARISON: [facility], , PAIN L/S FACET INJ/BLK 1ST KAI, 04/30/2020, 14:06. INDICATIONS: Bilateral L1, L2, and L3 MBB FINDINGS: Fluoroscopic spot filming was performed to verify placement of spinal needles at the L1, L2, L3 level(s), as labeled on the films. Appropriate location(s) of the needle tip(s) was confirmed by injection of iodinated contrast. Dictated by: Brennen Castro M.D. on 07/23/2020 at 11:05 Approved by: Brennen Castro M.D. on 07/23/2020 at 11:06
[2020-07-23] MEDS: MIDAZOLAM 5 MG/5 ML VIAL IV (09:48)
[2020-07-23] MEDS: fentaNYL 100 MCG/2 ML INJ 50 MCG IV (09:48)
[2020-07-23] MEDS: BUPIVACAINE 0.5% (PF) VIAL 5 ML INJ (09:55)
[2020-07-23] MEDS: IOPAMIDOL 15 ML VIAL 3 ML INJ (09:55)
[2020-07-23] MEDS: LIDOCAINE 1% 20 ML 10 ML INJ (09:55)
--- NOTE | 2020-07-23 10:06 | P.PCN_ITS ---
Date/Time/Diagnoses Date of procedure: 07/23/20 Time of procedure: 10:07 Pre-procedure diagnosis: 1. FACET ARTHROPATHY Post-procedure diagnosis: same Procedure Notes Procedure: 1. BILATERAL L1, L2 AND L3 DIAGNOSTIC MB BLOCKS Indications: Keith is referred by for treatment of Bilateral Axial LBP. Physician: Rome uJles Total Fluoroscopy time (seconds): 12 Total sedation minutes: 13 Complications: none Procedure in detail & Post-procedure care: DESCRIPTION OF PROCEDURE Fluoroscopically guided, contrast-controlled bilateral L1, L2 and L3 medial branch blocks with 0.5cc of 0.5% Marcaine. Following review of allergy and review of potential side effects and complications, including, but not necessarily limited to, infection, allergic reaction, local tissue breakdown, nerve injury, paralysis, stroke and possible , the patient indicated that the patient understood and agreed to proceed. An informed consent document was signed by the patient, witnessed by a nurse, and placed in the patient's chart. After review of previous anaesthesic history and IV conscious sedation the patient was deemed safe to proceed with today's procedure with IV conscious sedation as ASA class II designation. Safety time-out was performed to confirm patient ID, procedure to be performed and site of procedure. IV sedation was accomplished with a combination of 2mg of Versed and 50mcg of Fentantyl was administered by the RN after DO order, titrated to patient comfort during the course of the procedure while the patient remained responsive to all verbal commands In the prone position, following sterile prep and drape of the lumbar region, the right L1, L2 and L3 anatomical location of the medial branch of the dorsal ramus was identified fluoroscopically. Subsequently an anesthetic skin wheal using 1% lidocaine solution was initiated at each of the anatomical spots. Subsequently then a 22-gauge 3.5-inch spinal needle was atraumatically introduced and advanced under fluoroscopic guidance at each of the corresponding sites at the right L1, L2 and L3 MB. After negative aspiration, 0.2cc of Isovue 200 was injected, confirming placement without vascular or intrathecal uptake. Subsequently then 0.5cc of 0.5% Marcaine solution was injected at each of the corresponding sites at the right L1, L2 and L3 medial branch locations. The identical procedure was replicated on the left. The patient tolerated the procedure well without signs or symptoms of complications. The patient tolerated the procedure well without signs or symptoms of complications prior to transfer to the recovery area continued monitoring without incident. Post-procedure, the patient was monitored initiating provocative activities to measure the amount of relief from block of the facetogenic pain. The patient reported a VAS of 7 prior to the procedure and a post-procedure VAS of 1. It has been a pleasure to assist in the diagnostic and therapeutic care of your patient. POST OP INSTRUCTIONS The patient was provided with a Pain Log to complete over the next several hours and subsequent days prior to the patient's follow up with the ordering physician. 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 The patient is aware, was provided, once again, with a Pain Log and will follow up with the referring physician for review and clinical correlation
== END 2020-07-23 10:24 | disposition home or self-care (01) ==
LOC: RAD 08:16
PROVIDERS: PCP Student in an Organized Health Care Education/Training Program; Referring Provider Student in an Organized Health Care Education/Training Program; Visit Provider Physical Medicine & Rehabilitation
DX: M47.816 Spondylosis without myelopathy or radiculopathy, lumbar region (principal); M54.5 Low back pain
CPT/HCPCS: 64493; 64494; 64495; 99152; J2250; J3010

== ENCOUNTER → 2020-09-18 09:20 | Outpatient (CLI) | payer MEDICARE, BC, SELFPAY ==
--- NOTE | 2020-09-18 09:23 | DI.RAD.S_ITS ---
PROCEDURE: XR LUMBAR SPINE MIN 4V INDICATIONS: cocyxdynia TECHNIQUE: 5 views of the lumbar spine were acquired. COMPARISON: [facility], MR, MR LUMBAR SPINE WO CON, 03/22/2020, 9:53. FINDINGS: Bones: Spinal segmental level nomenclature as used in the 03/22/20 examination. Please see montage image. Mild L2 and L3 vertebral body height loss in keeping with unchanged chronic fractures. Multilevel degenerative endplate sclerosis and spurring. Diffuse facet arthropathy. Grade 1 retrolisthesis of T12 on L1, L1 on L2 , L2 on L3, L3 on L4. Grade 1 anterolisthesis of L4 on L5. Levoscoliosis centered at the L2 level. Soft tissues: Overlying bowel gas pattern is normal. No suspicious soft tissue calcifications. Oblique images: No pars defects. IMPRESSION: Levoscoliosis Severe multilevel lumbar spondylosis and spondylolisthesis as detailed above L2 and L3 compression fractures, grossly unchanged Dictated by: Brennen Castro M.D. on 09/18/2020 at 10:20 Approved by: Brennen Castro M.D. on 09/18/2020 at 10:34
== END ==
PROVIDERS: PCP Family Medicine; Referring Provider Physical Medicine & Rehabilitation; Visit Provider Physical Medicine & Rehabilitation
DX: S32.029A Unspecified fracture of second lumbar vertebra, initial encounter for closed fracture (principal); M53.3 Sacrococcygeal disorders, not elsewhere classified; M47.816 Spondylosis without myelopathy or radiculopathy, lumbar region; M43.16 Spondylolisthesis, lumbar region; M43.17 Spondylolisthesis, lumbosacral region; M41.86 Other forms of scoliosis, lumbar region; M41.82 Other forms of scoliosis, cervical region
CPT/HCPCS: 72110; 99214

== ENCOUNTER → 2020-12-02 13:25 | Outpatient (CLI) | payer MEDICARE, BC, SELFPAY ==
[2020-12-02 15:05] LABS: COVID19 -Nasal RAPID Negative (Negative)
== END ==
PROVIDERS: PCP Family Medicine; Visit Provider Physical Medicine & Rehabilitation
DX: Z01.812 Encounter for preprocedural laboratory examination (principal); Z20.822 Contact with and (suspected) exposure to COVID-19
CPT/HCPCS: 87635; C9803

== ENCOUNTER 2020-12-03 07:31 | Outpatient (CLI) | payer MEDICARE, BC, SELFPAY ==
[2020-12-03] VITALS (12 sets, daily range): BP systolic 61–177; BP diastolic 34–103; PULSE 45–78; RESP 10–17; TEMP 36.1; O2SAT 94–99
--- NOTE | 2020-12-03 07:32 | DI.RAD.S_ITS ---
PROCEDURE: PAIN L/S MED/LAT N RFA BILAT INDICATIONS: Bilateral L1, L2 and L3 RFA COMPARISON: [facility], CR, XR SACRUM COCCYX MIN 2V, 12/03/2020, 9:22. [facility], XA, PAIN L/S MED/LAT N RFA BILAT, 08/03/2019, 8:58. FINDINGS: Fluoroscopic spot filming was performed to verify placement of spinal needles at the bilateral L1, L2, and L3 level(s), as labeled on the films. IMPRESSION: Intraprocedural examination within normal limits. Dictated by: Michael Mcgovern M.D. on 12/03/2020 at 9:05 Approved by: Michael Mcgovern M.D. on 12/03/2020 at 9:06
[2020-12-03] MEDS: BUPIVACAINE 0.5% (PF) VIAL 5 ML INJ (08:25)
[2020-12-03] MEDS: fentaNYL 100 MCG/2 ML INJ 50 MCG IV (08:25)
[2020-12-03] MEDS: MIDAZOLAM 5 MG/5 ML VIAL IV (08:25)
[2020-12-03] MEDS: LIDOCAINE 1% 20 ML INJ (08:41)
--- NOTE | 2020-12-03 09:07 | P.PCN_ITS ---
Date/Time/Diagnoses Date of procedure: 12/03/20 Time of procedure: 09:07 Pre-procedure diagnosis: 1. RECALCITRANT FACET ARTHROPATHY Post-procedure diagnosis: same Procedure Notes Procedure: 1. BILATERAL L1, L2 AND L3 MEDIAL BRANCH RADIOFREQUENCY NEUROTOMY Indications: Keith is referred by Dr. Barnard for treatment of facet arthropathy. Physician: Rome Jules Total Fluoroscopy time (seconds): 25 Total sedation minutes: 35 Complications: none Procedure in detail & Post-procedure care: DESCRIPTION OF PROCEDURE Bilateral L1, L2 and L3 medial branch radiofrequency neurotomy The patient is well known to this clinic having undergone previous facet injections with good but temporary relief. The patient has experienced appropriate, concordant relief with previous facet and median branch blocks but the patient's pain has been recalcitrant to further conservative measures. Therefore, based upon the patient's relief and persistent symptoms, the patient is considered an appropriate candidate for facet rhizotomy. All of the patient's questions regarding the risks versus benefits of the procedure, including, but not limited to, bleeding, infection, temporary as well as lasting nerve injury, paralysis, stroke, and , as well treatment alternatives were answered to satisfaction. After obtaining informed consent, denial of pertinent drug allergies, as well as being made aware of the potential risks of bleeding, infection, spinal cord trauma, paralysis, temporary and permanent nerve damage, seizure, stroke, and possible , the patient was brought to the fluoroscopy suite and positioned prone on the fluoroscopy table. The lumbar region was prepped with Betadine and covered with a fenestrated drape in the usual sterile fashion. Appropriate monitors applied including pulse oxime ter, pulse, and blood pressure for regular monitoring throughout the procedure. After review of previous anaesthesic history and IV conscious sedation the patient was deemed safe to proceed with today's procedure with IV conscious sedation as ASA class II designation. Safety time-out was performed to confirm patient ID, procedure to be performed and site of procedure. IV sedation was accomplished with a combination of 2mg of Versed and 50mcg of Fentanyl administered by the RN after DO order, titrated to patient comfort during the course of the procedure while the patient remained responsive to all verbal commands. After local infiltration using 1% lidocaine, under fluoroscopic guidance, a 10- cm RF insulated needle with a 10-mm active tip was positioned parallel to the junction of the right the superior articulating process where the L3 medial branch resides. Needle placement was confirmed with motor stimulation of .5v on the right which produced local stimulation without radicular component. The stimulation was then increased to 2v with, once again, only local multifidus stimulation without radicular component. The needle was then removed and the identical procedure was performed along the length of the right L2 medial branch with motor stimulation at .7v on the right. The identical procedure was once again performed along the length of the right L1 and medial branch with motor stimulation of .5v on the right. The medial branches were then anesthetised with 0.5% marcaine. This was then followed by two discreet lesions performed at 80 degrees Celsius for 90 seconds each. The identical procedures were repeated on the left. The patient tolerated the procedure well without signs or symptoms of complications prior to transfer to the recovery area continued monitoring without incident. The patient was then transferred to the recovery area where they were observed for an appropriate period of time after the injection. The patient reported a VAS score of 9 prior to the procedure and a post-procedure VAS of 0. POST OP INSTRUCTIONS The patient was provided a Pain Log to continue to record the patient's response to the target-specific procedure prior to the patient's follow-up visit with the referring physician. Additionally, specific post-injection care instructions and a contact number to our office were provided if concerns arise regarding possible complications associated with the procedure are suspected.
--- NOTE | 2020-12-03 09:22 | DI.RAD.S_ITS ---
PROCEDURE: XR SACRUM COCCYX MIN 2V INDICATIONS: coccydynia TECHNIQUE: 3 views of the sacrum and coccyx acquired. COMPARISON: [facility], CR, XR LUMBAR SPINE MIN 4V, 09/18/2020, 9:17. [facility], XA, PAIN L/S MED/LAT N RFA BILAT, 12/03/2020, 8:27. FINDINGS: Bones: No fractures or dislocations. No suspicious bony lesions. Lower lumbar spine degenerative changes can be seen, including grade 1 L5-S1 anterolisthesis. Soft tissues: Visualized bowel gas pattern is normal. No suspicious soft tissue densities. IMPRESSION: Unremarkable sacrum and coccyx. Lower lumbar spine degenerative changes noted. Dictated by: Michael Mcgovern M.D. on 12/03/2020 at 9:09 Approved by: Michael Mcgovern M.D. on 12/03/2020 at 9:12
== END 2020-12-03 09:28 | disposition home or self-care (01) ==
LOC: RAD 07:32
PROVIDERS: PCP Family Medicine; Referring Provider Family Medicine; Visit Provider Physical Medicine & Rehabilitation
DX: M47.816 Spondylosis without myelopathy or radiculopathy, lumbar region (principal); M53.3 Sacrococcygeal disorders, not elsewhere classified
CPT/HCPCS: 64635; 64636; 72220; 99152; 99153; J2250; J3010

== ENCOUNTER → 2021-11-03 10:17 | Outpatient (CLI) | payer MEDICARE, BC, SELFPAY ==
[2021-11-03 11:22] LABS: COVID19 -Nasal RAPID Negative (Negative)
== END ==
PROVIDERS: PCP Family Medicine; Referring Provider Nurse Practitioner Family; Visit Provider Nurse Practitioner Family
DX: Z20.822 Contact with and (suspected) exposure to COVID-19 (principal)
CPT/HCPCS: 87635; C9803

== ENCOUNTER 2021-11-05 10:32 | Day surgery (SDC) | payer MEDICARE, BC, SELFPAY ==
[2021-11-05 10:47] VITALS: BP 156/79; PULSE 85; RESP 16; TEMP 36.3; O2SAT 98; BMI 26.4
[2021-11-05] MEDS: SODIUM CHLORIDE 0.9% 1,000 ML 84 ML IV (10:54)
--- NOTE | 2021-11-05 11:10 | PM.HP.1 ---
History of Present Illness History of Present Illness Date Patient Seen: 11/05/21 Chief complaint: SDC Narrative: Family history of colon cancer in his mother. Last colonoscopy over 10 years ago Patient History Medical History Facet arthropathy, lumbar Scoliosis of cervical region due to degenerative disease of spine in adult Traumatic coccydynia Surgical History H/O thumb surgery Family & Social History Family History Father Congestive heart failure Stroke Social History: household members spouse Tobacco & Substance use: Smoking Status Former smoker alcohol intake never Substance Use Type does not use Meds Home Medications and Allergies Home Medications Medication Instructions Recorded Confirmed Type coenzyme Q10 75 mg capsule (Ultra 75 mg PO DAILY 09/15/18 11/05/21 History CoQ10) cholecalciferol (vitamin D3) 25 1,000 unit PO DAILY 08/30/19 11/05/21 History mcg (1,000 unit) capsule atorvastatin 40 mg tablet 40 mg PO BEDTIME #90 tab 01/08/20 11/05/21 Rx diclofenac sodium 75 mg 75 mg PO BID #180 tab 06/13/20 11/05/21 Rx tablet,delayed release omeprazole 20 mg capsule,delayed 20 mg PO Q OTHER DAY #45 cap 10/17/20 11/05/21 Rx release tramadol 50 mg tablet 50 mg PO TID PRN #60 tab 10/02/21 11/05/21 Rx Allergies Allergy/AdvReac Type Severity Reaction Status Date / Time No Known Drug Allergies Allergy Verified 03/31/21 16:17 Exam Vital Signs (past 8 hours): - 11/05/21 10:47 Temperature 97.4 F L Pulse Rate 85 Respiratory Rate 16 Blood Pressure 156/79 H Pulse Oximetry 98 Oxygen Delivery Method Room Air Narrative Exam Narrative: Oropharynx free of lesions Chest clear to auscultation percussion Cardiac exam reveals no S3 or murmur Assessment & Plan Assessment & Plan narrative: The family history of colon cancer in a first-degree relative with need for follow-up colonoscopy. Risks, benefits, alternatives have been explained. Time Spent With Patient Critical Care time: I spent a total of [] minutes of critical care time on this patient's care today; this time is exclusive of procedural time.
--- NOTE | 2021-11-05 11:11 | PM.OP.COLON ---
Operative Date/Time/Diagnoses Date of procedure: 11/05/21 Pre-op diagnosis: See indication and findings Procedure & Clinicians Study performed: Colonoscopy Indications: Family history of colon cancer in a first-degree relative Surgeon: Milly Kidd Procedure Notes Procedure in detail: After informed consent was obtained the patient was placed in left lateral decubitus position. The video colonoscope was introduced the rectum slowly advanced to the cecum. On slow withdrawal mucosa was carefully examined. The scope was removed. The patient tolerated procedure well. Blood loss none Complications none Sedation mac Findings 1. Pancolonic diverticulosis. In no segment was it is severe and usually quite minimal 2. Otherwise negative colonoscopy to cecum Due to his first-degree relative family history would suggest follow-up colonoscopy in 5 years.
[2021-11-05 11:32] VITALS: BP 95/64; PULSE 77; RESP 14; TEMP 36.3; O2SAT 96
[2021-11-05 11:37] VITALS: BP 98/67; PULSE 78; RESP 15; O2SAT 95
[2021-11-05 11:42] VITALS: BP 106/76; PULSE 72; RESP 14; O2SAT 97
[2021-11-05 11:55] VITALS: BP 131/85; PULSE 73; RESP 14; O2SAT 97
[2021-11-05 12:06] VITALS: BP 139/88; PULSE 63; RESP 16; TEMP 36.2; O2SAT 97
== END 2021-11-05 12:17 | disposition home or self-care (01) ==
PROVIDERS: PCP Family Medicine; Referring Provider Internal Medicine Gastroenterology; Visit Provider Internal Medicine Gastroenterology
PROC: 0DJD8ZZ Inspection of Lower Intestinal Tract, Via Natural or Artificial Opening Endoscopic (ICD-10-PCS; CPT 45378; principal; 2021-11-05 11:30)
DX: Z12.11 Encounter for screening for malignant neoplasm of colon (principal); Z80.0 Family history of malignant neoplasm of digestive organs; K57.30 Diverticulosis of large intestine without perforation or abscess without bleeding
CPT/HCPCS: G0105; J2704

== ENCOUNTER → 2022-03-24 12:56 | Outpatient (CLI) | payer MEDICARE, BC, SELFPAY ==
--- NOTE | 2022-03-24 12:58 | DI.RAD.S_ITS ---
PROCEDURE: XR LUMBAR SPINE MIN 4V INDICATIONS: BACK PAIN TECHNIQUE: 5 views of the lumbar spine acquired, including flexion and extension views. COMPARISON: [facility], CR, XR LUMBAR SPINE MIN 4V, 09/18/2020, 9:17. FINDINGS: Bones: 5 nonrib-bearing vertebrae are present. Mild levoscoliosis centered at the L1 level. 3 mm retrolisthesis L1-L2, L2-L3 and L3-L4. 6 mm retrolisthesis L4-L5. 4 mm spondylolisthesis L5-S1. Multilevel disc degeneration, severe at the L1-L2, L2-L3 and L5-S1 level. Moderate lower lumbar spine facet joint arthropathy.. No acute vertebral body compression fractures. Mild chronic L1 and L2 compression fractures. No suspicious bony lesions. Soft tissues: Overlying bowel gas pattern is normal. No suspicious soft tissue calcifications. IMPRESSION: 1. Multilevel spondylosis similar prior examination. 2. No significant change in mild chronic L1 and L2 compression fractures. Dictated by: Aroldo Conteh [facility] Interpreted: Keisha Merlos MD on 03/24/2022 at 16:43 Transcribed by: EASTON on 03/24/2022 at 16:46 Approved by: Keisha Merlos M.D. on 03/24/2022 at 19:23
== END ==
PROVIDERS: PCP Family Medicine; Referring Provider Physical Medicine & Rehabilitation; Visit Provider Physical Medicine & Rehabilitation
DX: M47.816 Spondylosis without myelopathy or radiculopathy, lumbar region (principal); M48.061 Spinal stenosis, lumbar region without neurogenic claudication; M48.56XS Collapsed vertebra, not elsewhere classified, lumbar region, sequela of fracture
CPT/HCPCS: 72110

== ENCOUNTER → 2023-01-30 09:41 | Outpatient (CLI) | payer MEDICARE, OTHER, SELFPAY ==
--- NOTE | 2023-01-30 09:43 | DI.MRI.S_ITS ---
PROCEDURE: MR LUMBAR SPINE WO CON INDICATIONS: Exacerbation low back pain with right lower extremity sympto TECHNIQUE: Noncontrast sagittal T1 spin echo and T2 fast echo, sagittal STIR, and T2 fast spin echo through the lumbar spine. In cases with scoliosis, additional coronal T2 fast spin echo may be performed. COMPARISON: [facility], MR, MR LUMBAR SPINE WO CON, 03/22/2020, 9:53. FINDINGS: Image quality: Excellent. Alignment and Curvature: Numbering system uses the same numbering system used previously. However, the vertebral body labeled as L1 does have hypoplastic ribs. The vertebra labeled S1 is a transitional vertebra with a well-formed disc at S1-S2. Mild retrolisthesis of L1 on L2 and of L2 on L3 and of L3 on L4 is present. There is grade 1 anterolisthesis of L5 on S1 measuring 6 mm. There is scoliotic curvature, mild, convexity to the left. Bone Marrow: Marrow is of normal overall signal. No acute vertebral body compression fractures. Spinal Cord: Conus medullaris terminates at the L1 level. Visualized cord demonstrates normal signal and size. Paraspinous Soft Tissues: No paravertebral masses. T12-L1: Disc bulge. No canal stenosis or foraminal stenosis. L1-L2: No significant change. Retrolisthesis of the L1 on L2. Posterior disc bulge. Facet hypertrophy. Mild canal stenosis. Severe right foraminal narrowing with impingement on the exiting right L1 nerve root. L2-L3: No significant change. Retrolisthesis of L2 on L3. Posterior disc plus osteophyte. Facet hypertrophy. Moderate canal stenosis. Moderate bilateral foraminal stenosis. L3-L4: No significant change. Disc bulge. Facet hypertrophy. Moderate canal stenosis. [id number] right foraminal narrowing. Moderate to severe left foraminal narrowing with left foraminal L3 nerve root impingement. L4-L5: Although a focal left paracentral disc protrusion has resolved, there is diffuse disc bulge and facet and ligament hypertrophy which results in severe canal stenosis. Again noted is [id number] right foraminal narrowing and severe left foraminal narrowing with left foraminal L4 nerve root impingement. L5-S1: There is degenerative anterolisthesis of L5 on S1. There is quite prominent bilateral facet hypertrophy. There is severe canal stenosis at the disc space. However, posterior to the inferior aspect of S1, secondary to facet arthropathy at S1-S2, there is high-grade stenosis. There is severe bilateral L5-S1 foraminal narrowing. IMPRESSION: 1. Current numbering system uses the previous numbering system. It is very important to carefully correlate with imaging findings for correct surgical level. 2. There is multilevel canal stenosis extending from L1-L2 inferiorly. 3. Canal stenosis is severe at L4-L5. It is severe at L5-S1, and it is high-grade at the lower aspect of S1, at the S1-S2 level. 4. Multilevel facet arthropathy. 5. Significant multilevel foraminal narrowing as described above. Findings include severe right foraminal narrowing at L1-L2, moderate to severe left foraminal narrowing at L3-L4, severe left foraminal narrowing at L4-L5, and severe bilateral foraminal narrowing at L5-S1. Dictated by: Teto Lockwood M.D. on 02/01/2023 at 9:11 Approved by: Teto Lockwood M.D. on 02/01/2023 at 9:23
== END ==
PROVIDERS: PCP Family Medicine; Referring Provider Physical Medicine & Rehabilitation; Visit Provider Physical Medicine & Rehabilitation
DX: M43.17 Spondylolisthesis, lumbosacral region (principal); M48.061 Spinal stenosis, lumbar region without neurogenic claudication; M48.07 Spinal stenosis, lumbosacral region; M47.816 Spondylosis without myelopathy or radiculopathy, lumbar region; M47.817 Spondylosis without myelopathy or radiculopathy, lumbosacral region; M47.818 Spondylosis without myelopathy or radiculopathy, sacral and sacrococcygeal region
CPT/HCPCS: 72148

== ENCOUNTER → 2024-03-21 10:47 | Outpatient (CLI) | payer MEDICARE, OTHER, SELFPAY ==
--- NOTE | 2024-03-21 | DI.CT.S_ITS ---
PROCEDURE: CT LUMBAR SPINE WO CON INDICATIONS: Spondylolisthesis, lumbar region TECHNIQUE: Noncontrast 3 mm thick sections acquired from the T12 level to the sacrum. Sagittal and coronal reformats were constructed. For radiation dose reduction, the following was used: automated exposure control. COMPARISON: None. FINDINGS: Image quality: Excellent. Bones: There is a transitional element at L5. Roughly 4 mm of retrolisthesis of T12 on L1. 6 mm retro retrolisthesis of L1 on L2. 4 mm of retrolisthesis of L2 on L3. 6 mm of retrolisthesis of L3 on L4. 5 mm of anterolisthesis of L5 on S1. Multilevel disc space narrowing and endplate osteophyte formation. No acute vertebral body compression fractures. No suspicious lytic or blastic bony lesions. No pars defects. There is severe canal stenosis at L3-L4 and L4-L5. Probable severe foraminal stenosis at T12-L1 on the right. Mild to moderate foraminal stenoses throughout the remainder of the lumbar spine. Soft tissues: No retroperitoneal masses or hematomas. Visualized aorta is normal in caliber. IMPRESSION: 1. Multilevel degenerative disc and facet disease. 2. Multilevel canal stenoses, worst at L3-L4 and L4-L5. 3. Transitional anatomy at L5. Dictated by: Michelle Godoy M.D. on 03/21/2024 at 12:17 Approved by: Michelle Godoy M.D. on 03/21/2024 at 12:42
== END ==
LOC: CT 10:47
PROVIDERS: PCP Family Medicine; Referring Provider Neurological Surgery; Visit Provider Neurological Surgery
DX: M51.36 Other intervertebral disc degeneration, lumbar region (principal); M47.816 Spondylosis without myelopathy or radiculopathy, lumbar region; M43.16 Spondylolisthesis, lumbar region; M48.061 Spinal stenosis, lumbar region without neurogenic claudication
CPT/HCPCS: 72131

== ENCOUNTER → 2025-01-01 11:02 | Outpatient (CLI) | payer MEDICARE, OTHER, SELFPAY ==
[2025-01-01 12:56] LABS: COVID-19 CEPHEID 4-PLEX PCR Negative (Negative); Influenza A - CEPHEID Flu A NEGATIVE (NEGATIVE); Influenza B - CEPHEID Flu B NEGATIVE (NEGATIVE); Respiratory Syncytial Virus Negative (Negative)
== END ==
PROVIDERS: PCP Family Medicine; Visit Provider Registered Nurse
DX: R50.9 Fever, unspecified (principal)
CPT/HCPCS: 0241U

== ENCOUNTER → 2025-03-16 10:10 | Outpatient (CLI) | payer MEDICARE, OTHER, SELFPAY ==
--- NOTE | 2025-03-16 10:11 | DI.CT.S_ITS ---
PROCEDURE: CT LUNG LOW DOSE SCREENING INDICATIONS: mcc hx of tobacco use TECHNIQUE: Noncontrast 2.0-2.5 mm thick sections acquired from the pulmonary apices to the posterior costophrenic angles. 7 mm thick axial MIP, and 5 mm coronal and sagittal reformats were then acquired. For radiation dose reduction, the following was used: automated exposure control, adjustment of mA and/or kV according to patient size. COMPARISON: None. FINDINGS: Image quality: Diagnostic. Some images are limited by beam hardening artifacts, low [id number]. Large hiatal hernia with nonspecific wall thickening of the distal esophagus into the stomach commonly artifact from partial nondistention although esophagitis, gastritis or other process could give this appearance. 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 No definitive pleural mass or circumferential rind-like pleural thickening to suggest mesothelioma. Moderate calcifications of the coronary arteries and mild calcifications of the aortic arch vessels. Heart size within normal limits. Lower Neck: No enlarged lymph nodes. Thyroid: No thyroid nodules which require sonographic follow up, per consensus guidelines. Axillae: No enlarged lymph nodes. Chest Wall: Unremarkable. Bones: Mild degenerative changes lower cervical, thoracic spine without CT evidence of fracture, subluxation or central stenosis. Lungs and Pleura: No pneumothorax or pleural effusions. No consolidation or suspicious nodules. Heart: Heart size is normal. No pericardial effusion. Thoracic Vessels: The aorta and pulmonary arteries demonstrate normal size. Mediastinum and Karen: No enlarged lymph nodes. IMPRESSION: No suspicious pulmonary nodules. LUNG-RADS 1; continued annual screening, if eligible. Clinically Significant Non-pulmonary Findings: Extensive bilateral calcified pleural plaques as discussed above. Large hiatal hernia with wall thickening distal esophagus, stomach. Dictated by: Sam Harrell M.D. on 03/16/2025 at 13:13 Approved by: Sam Harrell M.D. on 03/16/2025 at 13:32
== END ==
PROVIDERS: PCP Family Medicine; Referring Provider Family Medicine; Visit Provider Family Medicine
DX: Z12.2 Encounter for screening for malignant neoplasm of respiratory organs (principal); Z87.891 Personal history of nicotine dependence; K44.9 Diaphragmatic hernia without obstruction or gangrene; J98.4 Other disorders of lung
CPT/HCPCS: 71271

== ENCOUNTER 2025-06-26 08:15 | Outpatient (RCR) | payer MEDICARE, OTHER, SELFPAY ==
--- NOTE | 2025-05-17 09:40 | PT.OIE ---
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 Past Surgical History (Last Updated 02/20/25 @ 19:03 by Pau Faustin) Anesthesia H/O thumb surgery (~2015) History of lumbar fusion (~2023) Visit Care Team Role Provider Type Osman Barnard MD Family Provider Non-Staff Primary Care Provider Specialty: Family Practice Address: [address] [place] [address], [address], [place], [address] Email: Mohsen Olguin MD Attending Provider Physician Referring Provider Specialty: Orthopedics Orthopedic Surgery Address: [address] [place] [address], [id number] Fax: Email: [email or web address] Physical Therapy Initial Evaluation PT-OP-A Visit Information Start: 05/17/25 07:31 Freq: Status: Active Protocol: Document 05/17/25 07:32 BL (Rec: 05/17/25 09:39 BL Laptop) Out-Patient Physical Therapy Visit Information Visit Information Visit Type Initial Evaluation Visit Start Time 07:30 Visit Stop Time 08:10 Visit Number (1) / (PN by 06/16/25) Number of DIRECTOR INTEGRATED Visits 0 Evaluation Information Evaluation Date 05/17/25 Precautions Precautions Lumbar fusion in aug PT-OP-C Subjective Start: 05/17/25 07:31 Freq: Status: Active Protocol: Document 05/17/25 07:32 BL (Rec: 05/17/25 09:39 BL Laptop) OP-PT Subjective Patient Comments Patient Comments Pt presents to the clinic with concerns for L hip pain, noticed this several months ago when walking on inclines, reports going down hills seems to bother him, reports if he sits for longer periods of time, when he goes to get up he notices increased discomfort. Reports pain as mostly dull and achy. States when his stands and pivots on his L LE the pain intensifies. Pt reports feeling changes in his strength and balance control. Patient Questionnaires Lower Extremity Functional Scale LEFS Score 41% function PT-OP-D Balance Start: 05/17/25 07:31 Freq: Status: Active Protocol: Document 05/17/25 07:32 BL (Rec: 05/17/25 09:39 BL Laptop) Balance Tests Single Limb Standing Single Limb- Right 15 seconds Single Limb- Left 15 seconds PT-OP-G Mobility & Gait Start: 05/17/25 07:31 Freq: Status: Active Protocol: Document 05/17/25 07:32 BL (Rec: 05/17/25 09:39 BL Laptop) OP Gait Assessment Comments Gait Comments Pt ambulates with Trendelenburg gait pattern with L hip weakness. PT-OP-H Neuro Start: 05/17/25 07:31 Freq: Status: Active Protocol: Document 05/17/25 07:32 BL (Rec: 05/17/25 09:39 BL Laptop) Sensation Evaluation Comments Summary Comments no sensation changes noted. Coordination Evaluation Comments Coordination Pt reports feeling clumsy with ambulation but demos Comments normal heel to patel test. PT-OP-J Posture/Palpation/Skin Start: 05/17/25 07:31 Freq: Status: Active Protocol: Document 05/17/25 07:32 BL (Rec: 05/17/25 09:39 BL Laptop) Posture Evaluation Comments Posture Comments Pt sits with upright posture, no lateral shift noted. Level PSIS noted in standing, with neutral SI. Palpation Assessment Location L hip Palpation Details Pt point tender to lateral thigh and posterior piriformis area. No tenderness around SI area PT-OP-K Range of Motion Start: 05/17/25 07:31 Freq: Status: Active Protocol: Document 05/17/25 07:32 BL (Rec: 05/17/25 09:39 BL Laptop) Hip Goniometric Range of Motion Hip right Hip ROM WFL Yes left Hip ROM WFL Yes Comments Increased resistance note into hip flexion and ER PT-OP-L Special Tests Start: 05/17/25 07:31 Freq: Status: Active Protocol: Document 05/17/25 07:32 BL (Rec: 05/17/25 09:39 BL Laptop) Special Tests Hip Special Tests Piriformis Test Results . LORAINE Test Results negative Timbo Test Results positive on L for tightness in hip flexor PT-OP-M Strength Start: 05/17/25 07:31 Freq: Status: Active Protocol: Document 05/17/25 07:32 BL (Rec: 05/17/25 09:39 BL Laptop) Hip Strength Hip Manual Muscle Testing Right Flexion (L2) 4+ Good+ Extension (S1) 4 Good Abduction 4+ Good+ Adduction 4+ Good+ External Rotation 4+ Good+ Internal Rotation 4+ Good+ Left Flexion (L2) 4+ Good+ Extension (S1) 4 Good Abduction 4+ Good+ Adduction 4+ Good+ External Rotation 4 Good Internal Rotation 4+ Good+ Knee Strength Knee Manual Muscle Testing Right Flexion (S2) 4+ Good+ Extension (L3) 4+ Good+ Left Flexion (S2) 4+ Good+ Extension (L3) 4+ Good+ PT-OP-Q Treatments Start: 05/17/25 07:31 Freq: Status: Active Protocol: Document 05/17/25 07:32 BL (Rec: 05/17/25 09:39 BL Laptop) Therapeutic Exercises Supine Exercises stretch Supine Exercise Name figure 4 stretch, cross body piriformis stretch, IT band stretch PT-OP-T Assessment and Plan Start: 05/17/25 07:31 Freq: Status: Active Protocol: Document 05/17/25 07:32 BL (Rec: 05/17/25 09:39 BL Laptop) Physical Therapy Assessment Rehab Potential Rehabilitation Good Potential Evaluation Complexity Number of Personal 1-2 Factors/ Comorbidities Number of Body 3 Systems Impaired Clinical Evolving Presentation at Evaluation Impairments Impairments Activity Tolerance,Coordination,Functional Activities, Functional Mobility,Gait,Pain,Posture,ROM,Soft Tissue Mobility,Strength,Transfers Goals Three Jail Goal (LTG) Pt will report being able to sleep at night without increase in symptoms by DC for improved sleep quality. Two Brass Bobbin Winder Goal (LTG) Pt will demo improved L hip ER strength to 4+/5 by DC for improved hip stability with functional mobility. One Short Term Goal (STG Pt will be ind with HEP within 2 visit in order to ) progress toward vice president of brand management therapy goals outside of therapy visits Jail Goal (LTG) Pt will report being able to ambulate greater than 1/2 mile without increase in symptoms by DC for recreational activity Assessment Summary Assessment Pt presents with L hip pain that has been present for several months, stats he had a lumbar fusion last fall and has been doing well, states he also had an ablation but thinks he may need another in the future. Reports his hip started bothering him and discussed his case with Ortho who found his hip joint and bone health to be ok, further exam revealed muscle irregularity and was referred to PT. Todays exam reveals slight limitations in ROM and strength to L hip along with increased tissue tension. Pt demos good balance however is much steadier on R LE. Pt will benefit from skilled Physical Therapy intervention for strength and endurance training to improve hip mobility and decrease pain allowing for improved functional mobility. Physical Therapy Plan Frequency and Duration Frequency of 2x/Week Treatment Duration of 8 treatment (weeks) Plan of Care Start 05/17/25 Date Plan of Care End 07/12/25 Date Therapeutic Interventions Therapeutic Coordination Training,Gait Training,Home Exercise Interventions Program,Joint Mobilizations,Manual Therapy, Neuromuscular Re-education,Orthotic/Prosthetic Management,Patient/Caregiver Education,Self-Care/Home Management,Sensory Integration,Soft Tissue Mobilization ,Taping,Therapeutic Activities,Therapeutic Exercises Modalities Cold Pack/Ice Massage,Electric Stimulation,Hot Packs, Infrared Therapy,Iontophoresis,Ultrasound Next Visit Focus/Plan Next Note Type Treatment Note Next Visit Plan Advance HEP for hip mobility and strengthening
--- NOTE | 2025-05-17 09:40 | PT.OPPOC ---
Physical, Occupational & Speech Therapy At [facility] Current Diagnoses Unspecified disorder of synovium and tendon, left thigh (05/17/25) Visit Care Team Role Provider Type Osman Barnard MD Family Provider Non-Staff Primary Care Provider Specialty: Family Practice Address: [address] [facility] [facility], [address], [place], [address] Email: Mohsen Olguin MD Attending Provider Physician Referring Provider Specialty: Orthopedics Orthopedic Surgery Address: [address] [place] [address], [address] Fax: Email: [email or web address] Plan Of Care PT-OP-T Assessment and Plan Start: 05/17/25 07:31 Freq: Status: Active Protocol: Document 05/17/25 07:32 BL (Rec: 05/17/25 09:39 BL Laptop) Physical Therapy Assessment Rehab Potential Rehabilitation Good Potential Evaluation Complexity Number of Personal 1-2 Factors/ Comorbidities Number of Body 3 Systems Impaired Clinical Evolving Presentation at Evaluation Impairments Impairments Activity Tolerance,Coordination,Functional Activities, Functional Mobility,Gait,Pain,Posture,ROM,Soft Tissue Mobility,Strength,Transfers Goals Three Intermediate Goal (LTG) Pt will report being able to sleep at night without increase in symptoms by DC for improved sleep quality. Two Personnel Generalist Manager Goal (LTG) Pt will demo improved L hip ER strength to 4+/5 by DC for improved hip stability with functional mobility. One Short Term Goal (STG Pt will be ind with HEP within 2 visit in order to ) progress toward intermediate project manager therapy goals outside of therapy visits Personnel Generalist Manager Goal (LTG) Pt will report being able to ambulate greater than 1/2 mile without increase in symptoms by DC for recreational activity Assessment Summary Assessment Pt presents with L hip pain that has been present for several months, stats he had a lumbar fusion last fall and has been doing well, states he also had an ablation but thinks he may need another in the future. Reports his hip started bothering him and discussed his case with Ortho who found his hip joint and bone health to be ok, further exam revealed muscle irregularity and was referred to PT. Todays exam reveals slight limitations in ROM and strength to L hip along with increased tissue tension. Pt demos good balance however is much steadier on R LE. Pt will benefit from skilled Physical Therapy intervention for strength and endurance training to improve hip mobility and decrease pain allowing for improved functional mobility. Physical Therapy Plan Frequency and Duration Frequency of 2x/Week Treatment Duration of 8 treatment (weeks) Plan of Care Start 05/17/25 Date Plan of Care End 07/12/25 Date Therapeutic Interventions Therapeutic Coordination Training,Gait Training,Home Exercise Interventions Program,Joint Mobilizations,Manual Therapy, Neuromuscular Re-education,Orthotic/Prosthetic Management,Patient/Caregiver Education,Self-Care/Home Management,Sensory Integration,Soft Tissue Mobilization ,Taping,Therapeutic Activities,Therapeutic Exercises Modalities Cold Pack/Ice Massage,Electric Stimulation,Hot Packs, Infrared Therapy,Iontophoresis,Ultrasound Next Visit Focus/Plan Next Note Type Treatment Note Next Visit Plan Advance HEP for hip mobility and strengthening Plan of Care Dates Plan of Care Start Date 05/17/25 Plan of Care End Date 07/12/25 Electronically Signed by: Ar Burrell PT 05/17/25 0929 If you are in agreement with this Plan of Care, please return a signed and dated copy. I have reviewed this Plan of Care and certify that the skilled therapy services above are required to meet the patient?s needs. Physician Signature Date Printed Name and Credentials Clinical Instructor Signature Printed Name and Credentials
--- NOTE | 2025-05-22 08:56 | PT.OTN ---
Current Diagnoses Unspecified disorder of synovium and tendon, left thigh (05/22/25) Physical Therapy Treatment Note PT-OP-A Visit Information Start: 05/17/25 07:31 Freq: Status: Active Protocol: Document 05/22/25 08:17 BL (Rec: 05/22/25 08:56 BL Laptop) Out-Patient Physical Therapy Visit Information Visit Information Visit Type Treatment Note Visit Start Time 08:15 Visit Stop Time 08:55 Visit Number (2) 2/10 (PN by 06/16/25) Number of ELEVATOR SERVICE TECHNICIAN Visits 0 Precautions Precautions Lumbar fusion in aug PT-OP-C Subjective Start: 05/17/25 07:31 Freq: Status: Active Protocol: Document 05/22/25 08:17 BL (Rec: 05/22/25 08:56 BL Laptop) OP-PT Subjective Patient Comments Patient Comments Pt presents to the clinic this date and reports he is doing well, states he has noticed a big improvement in his symptoms with the stretching. Reports he has noticed the weakness in his L hip. PT-OP-D Balance Start: 05/17/25 07:31 Freq: Status: Active Protocol: Document 05/17/25 07:32 BL (Rec: 05/17/25 09:39 BL Laptop) Balance Tests Single Limb Standing Single Limb- Right 15 seconds Single Limb- Left 15 seconds PT-OP-G Mobility & Gait Start: 05/17/25 07:31 Freq: Status: Active Protocol: Document 05/17/25 07:32 BL (Rec: 05/17/25 09:39 BL Laptop) OP Gait Assessment Comments Gait Comments Pt ambulates with Trendelenburg gait pattern with L hip weakness. PT-OP-H Neuro Start: 05/17/25 07:31 Freq: Status: Active Protocol: Document 05/17/25 07:32 BL (Rec: 05/17/25 09:39 BL Laptop) Sensation Evaluation Comments Summary Comments no sensation changes noted. Coordination Evaluation Comments Coordination Pt reports feeling clumsy with ambulation but demos Comments normal heel to patel test. PT-OP-J Posture/Palpation/Skin Start: 05/17/25 07:31 Freq: Status: Active Protocol: Document 05/17/25 07:32 BL (Rec: 05/17/25 09:39 BL Laptop) Posture Evaluation Comments Posture Comments Pt sits with upright posture, no lateral shift noted. Level PSIS noted in standing, with neutral SI. Palpation Assessment Location L hip Palpation Details Pt point tender to lateral thigh and posterior piriformis area. No tenderness around SI area PT-OP-K Range of Motion Start: 05/17/25 07:31 Freq: Status: Active Protocol: Document 05/17/25 07:32 BL (Rec: 05/17/25 09:39 BL Laptop) Hip Goniometric Range of Motion Hip right Hip ROM WFL Yes left Hip ROM WFL Yes Comments Increased resistance note into hip flexion and ER PT-OP-L Special Tests Start: 05/17/25 07:31 Freq: Status: Active Protocol: Document 05/17/25 07:32 BL (Rec: 05/17/25 09:39 BL Laptop) Special Tests Hip Special Tests Piriformis Test Results . LORAINE Test Results negative Timbo Test Results positive on L for tightness in hip flexor PT-OP-M Strength Start: 05/17/25 07:31 Freq: Status: Active Protocol: Document 05/17/25 07:32 BL (Rec: 05/17/25 09:39 BL Laptop) Hip Strength Hip Manual Muscle Testing Right Flexion (L2) 4+ Good+ Extension (S1) 4 Good Abduction 4+ Good+ Adduction 4+ Good+ External Rotation 4+ Good+ Internal Rotation 4+ Good+ Left Flexion (L2) 4+ Good+ Extension (S1) 4 Good Abduction 4+ Good+ Adduction 4+ Good+ External Rotation 4 Good Internal Rotation 4+ Good+ Knee Strength Knee Manual Muscle Testing Right Flexion (S2) 4+ Good+ Extension (L3) 4+ Good+ Left Flexion (S2) 4+ Good+ Extension (L3) 4+ Good+ PT-OP-Q Treatments Start: 05/17/25 07:31 Freq: Status: Active Protocol: Document 05/22/25 08:17 BL (Rec: 05/22/25 08:56 BL Laptop) Therapeutic Exercises Supine Exercises strength Supine Exercise Name SL eccentric bridge Comments 2x10 stretch Supine Exercise Name figure 4 stretch, cross body piriformis stretch, IT band stretch Sidelying Exercises strength Sidelying Exercise clamshells Name Comments 2x10 Sitting Exercises NuStep Sitting Exercise cardiovascular and tissue warm up Name Comments 3 min, lvl 3-5 Standing Exercises strenght Standing Exercise lateral step ups Name Equipment Used 6 in step Comments 10x PT-OP-T Assessment and Plan Start: 05/17/25 07:31 Freq: Status: Active Protocol: Document 05/22/25 08:17 BL (Rec: 05/22/25 08:56 BL Laptop) Physical Therapy Assessment Goals Three Fpc Goal (LTG) Pt will report being able to sleep at night without increase in symptoms by DC for improved sleep quality. Two Coat Repair Inspector Goal (LTG) Pt will demo improved L hip ER strength to 4+/5 by DC for improved hip stability with functional mobility. One Short Term Goal (STG Pt will be ind with HEP within 2 visit in order to ) progress toward terminal operations supervisor therapy goals outside of therapy visits Fpc Goal (LTG) Pt will report being able to ambulate greater than 1/2 mile without increase in symptoms by DC for recreational activity Assessment Summary Assessment Pt tolerates session well, demos improved hip mobility, progress hip strengthening with good results. Physical Therapy Plan Frequency and Duration Frequency of 2x/Week Treatment Duration of 8 treatment (weeks) Plan of Care Start 05/17/25 Date Plan of Care End 07/12/25 Date Next Visit Focus/Plan Next Note Type Treatment Note Next Visit Plan Advance HEP for hip mobility and strengthening, manual therapy to L piriformis.
--- NOTE | 2025-05-24 08:16 | PT.OTN ---
Current Diagnoses Unspecified disorder of synovium and tendon, left thigh (05/24/25) Physical Therapy Treatment Note PT-OP-A Visit Information Start: 05/17/25 07:31 Freq: Status: Active Protocol: Document 05/24/25 07:31 SP (Rec: 05/24/25 07:39 SP [id number]) Out-Patient Physical Therapy Visit Information Visit Information Visit Type Treatment Note Visit Start Time 07:31 Visit Stop Time 08:16 Visit Number (3) 3/10 (PN by 06/16/25) Number of CUSHION STUFFER Visits 1 Evaluation Information Evaluation Date 05/17/25 Precautions Precautions Lumbar fusion in aug PT-OP-C Subjective Start: 05/17/25 07:31 Freq: Status: Active Protocol: Document 05/24/25 07:31 SP (Rec: 05/24/25 07:43 SP [id number]) OP-PT Subjective Patient Comments Patient Comments Pt reports seems like having pain when get a new activity in PT. He still has hard time finding comfortable position to sleep, usually SL and finding sleeping on back better. PT-OP-D Balance Start: 05/17/25 07:31 Freq: Status: Active Protocol: Document 05/17/25 07:32 BL (Rec: 05/17/25 09:39 BL Laptop) Balance Tests Single Limb Standing Single Limb- Right 15 seconds Single Limb- Left 15 seconds PT-OP-G Mobility & Gait Start: 05/17/25 07:31 Freq: Status: Active Protocol: Document 05/17/25 07:32 BL (Rec: 05/17/25 09:39 BL Laptop) OP Gait Assessment Comments Gait Comments Pt ambulates with Trendelenburg gait pattern with L hip weakness. PT-OP-H Neuro Start: 05/17/25 07:31 Freq: Status: Active Protocol: Document 05/17/25 07:32 BL (Rec: 05/17/25 09:39 BL Laptop) Sensation Evaluation Comments Summary Comments no sensation changes noted. Coordination Evaluation Comments Coordination Pt reports feeling clumsy with ambulation but demos Comments normal heel to patel test. PT-OP-J Posture/Palpation/Skin Start: 05/17/25 07:31 Freq: Status: Active Protocol: Document 05/17/25 07:32 BL (Rec: 05/17/25 09:39 BL Laptop) Posture Evaluation Comments Posture Comments Pt sits with upright posture, no lateral shift noted. Level PSIS noted in standing, with neutral SI. Palpation Assessment Location L hip Palpation Details Pt point tender to lateral thigh and posterior piriformis area. No tenderness around SI area PT-OP-K Range of Motion Start: 05/17/25 07:31 Freq: Status: Active Protocol: Document 05/17/25 07:32 BL (Rec: 05/17/25 09:39 BL Laptop) Hip Goniometric Range of Motion Hip right Hip ROM WFL Yes left Hip ROM WFL Yes Comments Increased resistance note into hip flexion and ER PT-OP-L Special Tests Start: 05/17/25 07:31 Freq: Status: Active Protocol: Document 05/17/25 07:32 BL (Rec: 05/17/25 09:39 BL Laptop) Special Tests Hip Special Tests Piriformis Test Results . LORAINE Test Results negative Timbo Test Results positive on L for tightness in hip flexor PT-OP-M Strength Start: 05/17/25 07:31 Freq: Status: Active Protocol: Document 05/17/25 07:32 BL (Rec: 05/17/25 09:39 BL Laptop) Hip Strength Hip Manual Muscle Testing Right Flexion (L2) 4+ Good+ Extension (S1) 4 Good Abduction 4+ Good+ Adduction 4+ Good+ External Rotation 4+ Good+ Internal Rotation 4+ Good+ Left Flexion (L2) 4+ Good+ Extension (S1) 4 Good Abduction 4+ Good+ Adduction 4+ Good+ External Rotation 4 Good Internal Rotation 4+ Good+ Knee Strength Knee Manual Muscle Testing Right Flexion (S2) 4+ Good+ Extension (L3) 4+ Good+ Left Flexion (S2) 4+ Good+ Extension (L3) 4+ Good+ PT-OP-Q Treatments Start: 05/17/25 07:31 Freq: Status: Active Protocol: Document 05/24/25 07:31 SP (Rec: 05/24/25 07:39 SP [id number]) Therapeutic Exercises Supine Exercises strength Supine Exercise Name SL eccentric bridge Side bilateral Resistance AROM Equipment Used 1. (DL lift, SL lower) warm up 2 reps 2. SL rest reps 8 -10 Reps/Minutes 2x10 each side alternating Comments cues breath with effort lift stretch Supine Exercise Name 1. figure 4 stretch 2. cross body piriformis stretch 3. IT band stretch L>R Side bilateral Resistance 1. opp leg straight today good no LB Equipment Used 2. stationary leg bent, knee toward opp shld Reps/Minutes 60 sec ea Comments 3. hookylying ankle over opp knee pull knee away from hip Sitting Exercises NuStep Sitting Exercise cardiovascular and tissue warm up Name Comments 3 min, lvl 3-5 Standing Exercises Resisted squat taps chair Standing Exercise added HEP Name Resistance Tb #2 teal around thighs Equipment Used arms across chest Reps/Minutes 10 Comments cued chair against wall, slow- good hip hinge form- no pain/good tiring resisted band walk Standing Exercise trialed- resisted side step causes pain- DC 05/24/25 Name strenght Standing Exercise lateral step ups Name Side bilateral Resistance L>R weakness Equipment Used 6 in step Reps/Minutes 15 reps each side- improved control Comments level pelvis/core, light toe touch before heel allowed eccentric last 2 in Self-Care/Home Management Treatment Education Patient Education Body Mechanics,Home Exercise Program,Joint Protection, Pain Management,Posture Other Education Discussion use pillows between BLEs SL sleeping, behind back vs front for spinal and hip stability alignment comfort, felt good in PT. Added resisted hip abd STS, long axis Fig 4 PT-OP-T Assessment and Plan Start: 05/17/25 07:31 Freq: Status: Active Protocol: Document 05/24/25 07:31 SP (Rec: 05/24/25 07:39 SP [id number]) Physical Therapy Assessment Goals Three Hearing Aid Repair Technician Goal (LTG) Pt will report being able to sleep at night without increase in symptoms by DC for improved sleep quality. Two Hearing Aid Repair Technician Goal (LTG) Pt will demo improved L hip ER strength to 4+/5 by DC for improved hip stability with functional mobility. One Short Term Goal (STG Pt will be ind with HEP within 2 visit in order to ) progress toward rat exterminator therapy goals outside of therapy visits Hearing Aid Repair Technician Goal (LTG) Pt will report being able to ambulate greater than 1/2 mile without increase in symptoms by DC for recreational activity Assessment Summary Assessment Pt good response to addition of resisted STS and continued incorporation of stretching regimen for flexibility to compliment LE strengthening for progression of balance and return to more dynamic activity in community. Next add self STMs rolling pin/ ball wall if beneficial with stretching for mobility less no pain. Was able to perform SL bridge post stretching and DL>SL eccentric lowering, improved strength, cues for TA support, slow pacing. Physical Therapy Plan Frequency and Duration Frequency of 2x/Week Treatment Duration of 8 treatment (weeks) Plan of Care Start 05/17/25 Date Plan of Care End 07/12/25 Date Therapeutic Interventions Therapeutic Coordination Training,Gait Training,Home Exercise Interventions Program,Joint Mobilizations,Manual Therapy, Neuromuscular Re-education,Orthotic/Prosthetic Management,Patient/Caregiver Education,Self-Care/Home Management,Sensory Integration,Soft Tissue Mobilization ,Taping,Therapeutic Activities,Therapeutic Exercises Modalities Cold Pack/Ice Massage,Electric Stimulation,Hot Packs, Infrared Therapy,Iontophoresis,Ultrasound Next Visit Focus/Plan Next Note Type Treatment Note Next Visit Plan Recheck response to progressing stretching regimen and added STS for functional strengthening. POC: Advance HEP for hip mobility and strengthening, manual therapy to L piriformis.
--- NOTE | 2025-05-29 08:58 | PT.OTN ---
Current Diagnoses Unspecified disorder of synovium and tendon, left thigh (05/29/25) Physical Therapy Treatment Note PT-OP-A Visit Information Start: 05/17/25 07:31 Freq: Status: Active Protocol: Document 05/29/25 08:17 BL (Rec: 05/29/25 08:58 BL Laptop) Out-Patient Physical Therapy Visit Information Visit Information Visit Type Treatment Note Visit Start Time 08:15 Visit Stop Time 09:55 Visit Number (4) 4/10 (PN by 06/16/25) Number of CAR RESTORER Visits 0 Precautions Precautions Lumbar fusion in aug PT-OP-C Subjective Start: 05/17/25 07:31 Freq: Status: Active Protocol: Document 05/29/25 08:17 BL (Rec: 05/29/25 08:58 BL Laptop) OP-PT Subjective Patient Comments Patient Comments Pt presents to the clinic this date and reports continues to notice improvement, greatest difficulty with sleeping night. Happy with the improvements. PT-OP-D Balance Start: 05/17/25 07:31 Freq: Status: Active Protocol: Document 05/17/25 07:32 BL (Rec: 05/17/25 09:39 BL Laptop) Balance Tests Single Limb Standing Single Limb- Right 15 seconds Single Limb- Left 15 seconds PT-OP-G Mobility & Gait Start: 05/17/25 07:31 Freq: Status: Active Protocol: Document 05/17/25 07:32 BL (Rec: 05/17/25 09:39 BL Laptop) OP Gait Assessment Comments Gait Comments Pt ambulates with Trendelenburg gait pattern with L hip weakness. PT-OP-H Neuro Start: 05/17/25 07:31 Freq: Status: Active Protocol: Document 05/17/25 07:32 BL (Rec: 05/17/25 09:39 BL Laptop) Sensation Evaluation Comments Summary Comments no sensation changes noted. Coordination Evaluation Comments Coordination Pt reports feeling clumsy with ambulation but demos Comments normal heel to patel test. PT-OP-J Posture/Palpation/Skin Start: 05/17/25 07:31 Freq: Status: Active Protocol: Document 05/17/25 07:32 BL (Rec: 05/17/25 09:39 BL Laptop) Posture Evaluation Comments Posture Comments Pt sits with upright posture, no lateral shift noted. Level PSIS noted in standing, with neutral SI. Palpation Assessment Location L hip Palpation Details Pt point tender to lateral thigh and posterior piriformis area. No tenderness around SI area PT-OP-K Range of Motion Start: 05/17/25 07:31 Freq: Status: Active Protocol: Document 05/17/25 07:32 BL (Rec: 05/17/25 09:39 BL Laptop) Hip Goniometric Range of Motion Hip right Hip ROM WFL Yes left Hip ROM WFL Yes Comments Increased resistance note into hip flexion and ER PT-OP-L Special Tests Start: 05/17/25 07:31 Freq: Status: Active Protocol: Document 05/17/25 07:32 BL (Rec: 05/17/25 09:39 BL Laptop) Special Tests Hip Special Tests Piriformis Test Results . LORAINE Test Results negative Timbo Test Results positive on L for tightness in hip flexor PT-OP-M Strength Start: 05/17/25 07:31 Freq: Status: Active Protocol: Document 05/17/25 07:32 BL (Rec: 05/17/25 09:39 BL Laptop) Hip Strength Hip Manual Muscle Testing Right Flexion (L2) 4+ Good+ Extension (S1) 4 Good Abduction 4+ Good+ Adduction 4+ Good+ External Rotation 4+ Good+ Internal Rotation 4+ Good+ Left Flexion (L2) 4+ Good+ Extension (S1) 4 Good Abduction 4+ Good+ Adduction 4+ Good+ External Rotation 4 Good Internal Rotation 4+ Good+ Knee Strength Knee Manual Muscle Testing Right Flexion (S2) 4+ Good+ Extension (L3) 4+ Good+ Left Flexion (S2) 4+ Good+ Extension (L3) 4+ Good+ PT-OP-Q Treatments Start: 05/17/25 07:31 Freq: Status: Active Protocol: Document 05/29/25 08:17 BL (Rec: 05/29/25 08:58 BL Laptop) Therapeutic Exercises Supine Exercises strength Supine Exercise Name SL eccentric bridge (reviewed) Side bilateral Resistance AROM Equipment Used 1. (DL lift, SL lower) warm up 2 reps 2. SL rest reps 8 -10 Reps/Minutes 2x10 each side alternating Comments cues breath with effort lift stretch Supine Exercise Name 1. figure 4 stretch 2. cross body piriformis stretch 3. IT band stretch L>R Side bilateral Resistance 1. opp leg straight today good no LB Equipment Used 2. stationary leg bent, knee toward opp shld Reps/Minutes 60 sec ea Comments 3. hookylying ankle over opp knee pull knee away from hip Sitting Exercises NuStep Sitting Exercise cardiovascular and tissue warm up Name Comments 3 min, lvl 4 Standing Exercises SL clocks Standing Exercise clock steps on L LE Name Resistance lvl 2 band Comments 10x cues for UE support with L Resisted squat taps chair Standing Exercise added HEP Name Resistance Tb #2 teal around thighs Equipment Used arms across chest Reps/Minutes 10 Comments cued chair against wall, slow- good hip hinge form- no pain/good tiring resisted band walk Standing Exercise able to advance this date, Name Comments 2x 10' strenght Standing Exercise lateral step ups Name Side bilateral Resistance L>R weakness Equipment Used 6 in step Reps/Minutes 15 reps each side- improved control Comments level pelvis/core, light toe touch before heel allowed eccentric last 2 in Manual Therapy Treatment Consent Patient gave verbal Yes consent for manual treatment Soft Tissue Mobilization L hip Comments DTM with TPR to glute med and piriformis with improved tissue mobility following. PT-OP-T Assessment and Plan Start: 05/17/25 07:31 Freq: Status: Active Protocol: Document 05/29/25 08:17 BL (Rec: 05/29/25 08:58 BL Laptop) Physical Therapy Assessment Goals Three Supervisor Inspection Department Goal (LTG) Pt will report being able to sleep at night without increase in symptoms by DC for improved sleep quality. Two Long-Term Goal (LTG) Pt will demo improved L hip ER strength to 4+/5 by DC for improved hip stability with functional mobility. One Short Term Goal (STG Pt will be ind with HEP within 2 visit in order to ) progress toward long chain beamer therapy goals outside of therapy visits Supervisor Inspection Department Goal (LTG) Pt will report being able to ambulate greater than 1/2 mile without increase in symptoms by DC for recreational activity Assessment Summary Assessment Pt continues to demo improvements, in function and form . pt tolerates advancement in HEP for glute med strengthening and stability, continue to advance within pt tolerance. Physical Therapy Plan Frequency and Duration Frequency of 2x/Week Treatment Duration of 8 treatment (weeks) Plan of Care Start 05/17/25 Date Plan of Care End 07/12/25 Date Next Visit Focus/Plan Next Note Type Treatment Note Next Visit Plan Recheck response to progressing stretching regimen and added STS for functional strengthening. POC: Advance HEP for hip mobility and strengthening, manual therapy to L piriformis.
--- NOTE | 2025-06-05 08:57 | PT.OTN ---
Current Diagnoses Unspecified disorder of synovium and tendon, left thigh (06/05/25) Physical Therapy Treatment Note PT-OP-A Visit Information Start: 05/17/25 07:31 Freq: Status: Active Protocol: Document 06/05/25 08:17 BL (Rec: 06/05/25 08:57 BL Laptop) Out-Patient Physical Therapy Visit Information Visit Information Visit Type Treatment Note Visit Start Time 08:15 Visit Stop Time 08:55 Visit Number (5) 5/10 (PN by 06/16/25) Number of PRODUCTION STAGE MANAGER Visits 0 Precautions Precautions Lumbar fusion in aug PT-OP-C Subjective Start: 05/17/25 07:31 Freq: Status: Active Protocol: Document 06/05/25 08:17 BL (Rec: 06/05/25 08:57 BL Laptop) OP-PT Subjective Patient Comments Patient Comments Pt presents to the clinic this date and reports continues to notice improvement, states he was able to ambulate further without increased difficulty. PT-OP-D Balance Start: 05/17/25 07:31 Freq: Status: Active Protocol: Document 05/17/25 07:32 BL (Rec: 05/17/25 09:39 BL Laptop) Balance Tests Single Limb Standing Single Limb- Right 15 seconds Single Limb- Left 15 seconds PT-OP-G Mobility & Gait Start: 05/17/25 07:31 Freq: Status: Active Protocol: Document 05/17/25 07:32 BL (Rec: 05/17/25 09:39 BL Laptop) OP Gait Assessment Comments Gait Comments Pt ambulates with Trendelenburg gait pattern with L hip weakness. PT-OP-H Neuro Start: 05/17/25 07:31 Freq: Status: Active Protocol: Document 05/17/25 07:32 BL (Rec: 05/17/25 09:39 BL Laptop) Sensation Evaluation Comments Summary Comments no sensation changes noted. Coordination Evaluation Comments Coordination Pt reports feeling clumsy with ambulation but demos Comments normal heel to patel test. PT-OP-J Posture/Palpation/Skin Start: 05/17/25 07:31 Freq: Status: Active Protocol: Document 05/17/25 07:32 BL (Rec: 05/17/25 09:39 BL Laptop) Posture Evaluation Comments Posture Comments Pt sits with upright posture, no lateral shift noted. Level PSIS noted in standing, with neutral SI. Palpation Assessment Location L hip Palpation Details Pt point tender to lateral thigh and posterior piriformis area. No tenderness around SI area PT-OP-K Range of Motion Start: 05/17/25 07:31 Freq: Status: Active Protocol: Document 05/17/25 07:32 BL (Rec: 05/17/25 09:39 BL Laptop) Hip Goniometric Range of Motion Hip right Hip ROM WFL Yes left Hip ROM WFL Yes Comments Increased resistance note into hip flexion and ER PT-OP-L Special Tests Start: 05/17/25 07:31 Freq: Status: Active Protocol: Document 05/17/25 07:32 BL (Rec: 05/17/25 09:39 BL Laptop) Special Tests Hip Special Tests Piriformis Test Results . LORAINE Test Results negative Timbo Test Results positive on L for tightness in hip flexor PT-OP-M Strength Start: 05/17/25 07:31 Freq: Status: Active Protocol: Document 05/17/25 07:32 BL (Rec: 05/17/25 09:39 BL Laptop) Hip Strength Hip Manual Muscle Testing Right Flexion (L2) 4+ Good+ Extension (S1) 4 Good Abduction 4+ Good+ Adduction 4+ Good+ External Rotation 4+ Good+ Internal Rotation 4+ Good+ Left Flexion (L2) 4+ Good+ Extension (S1) 4 Good Abduction 4+ Good+ Adduction 4+ Good+ External Rotation 4 Good Internal Rotation 4+ Good+ Knee Strength Knee Manual Muscle Testing Right Flexion (S2) 4+ Good+ Extension (L3) 4+ Good+ Left Flexion (S2) 4+ Good+ Extension (L3) 4+ Good+ PT-OP-Q Treatments Start: 05/17/25 07:31 Freq: Status: Active Protocol: Document 06/05/25 08:17 BL (Rec: 06/05/25 08:57 BL Laptop) Therapeutic Exercises Supine Exercises strength Supine Exercise Name SL eccentric bridge (reviewed) Side bilateral Resistance AROM Equipment Used 1. (DL lift, SL lower) warm up 2 reps 2. SL rest reps 8 -10 Reps/Minutes 2x10 each side alternating Comments cues breath with effort lift stretch Supine Exercise Name 1. figure 4 stretch 2. cross body piriformis stretch 3. IT band stretch L>R Side bilateral Resistance 1. opp leg straight today good no LB Equipment Used 2. stationary leg bent, knee toward opp shld Reps/Minutes 60 sec ea Comments 3. hookylying ankle over opp knee pull knee away from hip Sitting Exercises NuStep Sitting Exercise cardiovascular and tissue warm up Name Comments 3 min, lvl 5 Standing Exercises Dynamic strength Standing Exercise Lunges, and clock taps Name Side left Comments 2x10 SL clocks Standing Exercise clock steps on L LE (reviewed) Name Resistance lvl 2 band Comments 10x cues for UE support with L Resisted squat taps chair Standing Exercise reviewed Name Resistance Tb #2 teal around thighs Equipment Used arms across chest Reps/Minutes 10 Comments cued chair against wall, slow- good hip hinge form- no pain/good tiring resisted band walk Standing Exercise tolerates lateral walking without band Name Comments 2x10' strenght Standing Exercise lateral step ups, Name Side bilateral Resistance L>R weakness Equipment Used 6 in step Reps/Minutes 15 reps each side- improved control Comments level pelvis/core, light toe touch before heel allowed eccentric last 2 in Manual Therapy Treatment Consent Patient gave verbal Yes consent for manual treatment Soft Tissue Mobilization L hip Comments DTM with TPR to glute med and piriformis with improved tissue mobility following. PT-OP-T Assessment and Plan Start: 05/17/25 07:31 Freq: Status: Active Protocol: Document 06/05/25 08:17 BL (Rec: 06/05/25 08:57 BL Laptop) Physical Therapy Assessment Goals Three Snf Goal (LTG) Pt will report being able to sleep at night without increase in symptoms by DC for improved sleep quality. Two Dispatcher Refinery Goal (LTG) Pt will demo improved L hip ER strength to 4+/5 by DC for improved hip stability with functional mobility. One Short Term Goal (STG Pt will be ind with HEP within 2 visit in order to ) progress toward [facility] therapy goals outside of therapy visits Snf Goal (LTG) Pt will report being able to ambulate greater than 1/2 mile without increase in symptoms by DC for recreational activity Assessment Summary Assessment Pt continues to demo improvements, in function and form . pt tolerates advancement in HEP for glute med strengthening and stability with cues for hip activation. Physical Therapy Plan Frequency and Duration Frequency of 2x/Week Treatment Duration of 8 treatment (weeks) Plan of Care Start 05/17/25 Date Plan of Care End 07/12/25 Date Next Visit Focus/Plan Next Note Type Treatment Note Next Visit Plan Recheck response to progressing stretching regimen and added STS for functional strengthening. POC: Advance HEP for hip mobility and strengthening, manual therapy to L piriformis.
--- NOTE | 2025-06-19 09:24 | PT.OTN ---
Current Diagnoses Unspecified disorder of synovium and tendon, left thigh (06/19/25) Physical Therapy Treatment Note PT-OP-A Visit Information Start: 05/17/25 07:31 Freq: Status: Active Protocol: Document 06/19/25 08:15 BL (Rec: 06/19/25 09:23 BL Laptop) Out-Patient Physical Therapy Visit Information Visit Information Visit Type Progress Note Visit Start Time 08:15 Visit Stop Time 08:55 Visit Number (7) 12/08 (PN by 07/20/25) Number of INSPECTOR PACKAGER Visits 0 Precautions Precautions Lumbar fusion in aug PT-OP-C Subjective Start: 05/17/25 07:31 Freq: Status: Active Protocol: Document 06/19/25 08:15 BL (Rec: 06/19/25 09:23 BL Laptop) OP-PT Subjective Patient Comments Patient Comments Pt presents to the clinic this date and reports continues to notice improvement, states after riding in the car for several hours his low back was pretty sore . PT-OP-D Balance Start: 05/17/25 07:31 Freq: Status: Active Protocol: Document 05/17/25 07:32 BL (Rec: 05/17/25 09:39 BL Laptop) Balance Tests Single Limb Standing Single Limb- Right 15 seconds Single Limb- Left 15 seconds PT-OP-G Mobility & Gait Start: 05/17/25 07:31 Freq: Status: Active Protocol: Document 05/17/25 07:32 BL (Rec: 05/17/25 09:39 BL Laptop) OP Gait Assessment Comments Gait Comments Pt ambulates with Trendelenburg gait pattern with L hip weakness. PT-OP-H Neuro Start: 05/17/25 07:31 Freq: Status: Active Protocol: Document 05/17/25 07:32 BL (Rec: 05/17/25 09:39 BL Laptop) Sensation Evaluation Comments Summary Comments no sensation changes noted. Coordination Evaluation Comments Coordination Pt reports feeling clumsy with ambulation but demos Comments normal heel to patel test. PT-OP-J Posture/Palpation/Skin Start: 05/17/25 07:31 Freq: Status: Active Protocol: Document 05/17/25 07:32 BL (Rec: 05/17/25 09:39 BL Laptop) Posture Evaluation Comments Posture Comments Pt sits with upright posture, no lateral shift noted. Level PSIS noted in standing, with neutral SI. Palpation Assessment Location L hip Palpation Details Pt point tender to lateral thigh and posterior piriformis area. No tenderness around SI area PT-OP-K Range of Motion Start: 05/17/25 07:31 Freq: Status: Active Protocol: Document 05/17/25 07:32 BL (Rec: 05/17/25 09:39 BL Laptop) Hip Goniometric Range of Motion Hip right Hip ROM WFL Yes left Hip ROM WFL Yes Comments Increased resistance note into hip flexion and ER PT-OP-L Special Tests Start: 05/17/25 07:31 Freq: Status: Active Protocol: Document 05/17/25 07:32 BL (Rec: 05/17/25 09:39 BL Laptop) Special Tests Hip Special Tests Piriformis Test Results . LORAINE Test Results negative Timbo Test Results positive on L for tightness in hip flexor PT-OP-M Strength Start: 05/17/25 07:31 Freq: Status: Active Protocol: Document 05/17/25 07:32 BL (Rec: 05/17/25 09:39 BL Laptop) Hip Strength Hip Manual Muscle Testing Right Flexion (L2) 4+ Good+ Extension (S1) 4 Good Abduction 4+ Good+ Adduction 4+ Good+ External Rotation 4+ Good+ Internal Rotation 4+ Good+ Left Flexion (L2) 4+ Good+ Extension (S1) 4 Good Abduction 4+ Good+ Adduction 4+ Good+ External Rotation 4 Good Internal Rotation 4+ Good+ Knee Strength Knee Manual Muscle Testing Right Flexion (S2) 4+ Good+ Extension (L3) 4+ Good+ Left Flexion (S2) 4+ Good+ Extension (L3) 4+ Good+ PT-OP-Q Treatments Start: 05/17/25 07:31 Freq: Status: Active Protocol: Document 06/19/25 08:15 BL (Rec: 06/19/25 09:23 BL Laptop) Therapeutic Exercises Supine Exercises strength Supine Exercise Name L SL bridge with R march Side bilateral Resistance AROM Equipment Used lvl 3 band Reps/Minutes 2x10 each side alternating Comments cues breath with effort lift stretch Supine Exercise Name 1. figure 4 stretch 2. cross body piriformis stretch 3. IT band stretch L>R Side bilateral Resistance 1. opp leg straight today good no LB Equipment Used 2. stationary leg bent, knee toward opp shld Reps/Minutes 60 sec ea Comments 3. hookylying ankle over opp knee pull knee away from hip Sidelying Exercises strength Sidelying Exercise Clamshells, reverse clamshells Name Resistance lvl 3 band, 0# Sitting Exercises NuStep Sitting Exercise cardiovascular and tissue warm up Name Comments 3 min, lvl 5 Standing Exercises Dynamic strength Standing Exercise Lunges, and clock taps Name Side left Equipment Used lvl 2 band Comments 2x10 SL clocks Standing Exercise clock steps on L LE (reviewed) Name Resistance lvl 2 band Comments 10x cues for UE support with L resisted band walk Standing Exercise tolerates lateral walking without band Name Resistance lvl 1 at ankles Comments 2x10' strenght Standing Exercise lateral step ups, Name Side bilateral Resistance L>R weakness Equipment Used 6 in step Reps/Minutes 15 reps each side- improved control Comments level pelvis/core, light toe touch before heel allowed eccentric last 2 in Manual Therapy Treatment Consent Patient gave verbal Yes consent for manual treatment Soft Tissue Mobilization L hip Comments DTM with TPR to glute med and piriformis with improved tissue mobility following. PT-OP-T Assessment and Plan Start: 05/17/25 07:31 Freq: Status: Active Protocol: Document 06/19/25 08:15 BL (Rec: 06/19/25 09:23 BL Laptop) Physical Therapy Assessment Goals Three Valve Lapper Goal (LTG) Pt will report being able to sleep at night without increase in symptoms by DC for improved sleep quality. (progressing) 06/19/25: Pt reports mild discomfort when sleeping at night but overall improved. Two Valve Lapper Goal (LTG) Pt will demo improved L hip ER strength to 4+/5 by DC for improved hip stability with functional mobility. ( progressing) 06/19/25: pt demos 4/5 strength with minimal discomfort following, progressed from 4-/5 initially. One Short Term Goal (STG Pt will be ind with HEP within 2 visit in order to ) progress toward custodial therapy goals outside of therapy visits (Goal Met) Group Home Goal (LTG) Pt will report being able to ambulate greater than 1/2 mile without increase in symptoms by DC for recreational activity (Goal Met) Assessment Summary Assessment Pt continues to progress in skilled PT intervention, pt demo improvements in hip strength and mobility, pt tolerates advancement in HEP for glute med strengthening and stability with cues for hip and core activation. Pt continues to progress toward PT goals and will continue to benefit from from skilled Pt intervention for strength and endurance training. Physical Therapy Plan Frequency and Duration Frequency of 2x/Week Treatment Duration of 8 treatment (weeks) Plan of Care Start 05/17/25 Date Plan of Care End 07/12/25 Date Next Visit Focus/Plan Next Note Type Treatment Note Next Visit Plan Recheck response to progressing stretching regimen and added STS for functional strengthening. POC: Advance HEP for hip mobility and strengthening, manual therapy to L piriformis.
--- NOTE | 2025-06-19 12:36 | PT.OPPN ---
Current Diagnoses Unspecified disorder of synovium and tendon, left thigh (06/19/25) Physical Therapy Progress Note PT-OP-A Visit Information Start: 05/17/25 07:31 Freq: Status: Active Protocol: Document 06/19/25 08:15 BL (Rec: 06/19/25 09:23 BL Laptop) Out-Patient Physical Therapy Visit Information Visit Information Visit Type Progress Note Visit Start Time 08:15 Visit Stop Time 08:55 Visit Number (7) 12/08 (PN by 07/20/25) Number of LOCK OPERATOR Visits 0 Precautions Precautions Lumbar fusion in aug PT-OP-C Subjective Start: 05/17/25 07:31 Freq: Status: Active Protocol: Document 06/19/25 08:15 BL (Rec: 06/19/25 09:23 BL Laptop) OP-PT Subjective Patient Comments Patient Comments Pt presents to the clinic this date and reports continues to notice improvement, states after riding in the car for several hours his low back was pretty sore . PT-OP-D Balance Start: 05/17/25 07:31 Freq: Status: Active Protocol: Document 05/17/25 07:32 BL (Rec: 05/17/25 09:39 BL Laptop) Balance Tests Single Limb Standing Single Limb- Right 15 seconds Single Limb- Left 15 seconds PT-OP-G Mobility & Gait Start: 05/17/25 07:31 Freq: Status: Active Protocol: Document 05/17/25 07:32 BL (Rec: 05/17/25 09:39 BL Laptop) OP Gait Assessment Comments Gait Comments Pt ambulates with Trendelenburg gait pattern with L hip weakness. PT-OP-H Neuro Start: 05/17/25 07:31 Freq: Status: Active Protocol: Document 05/17/25 07:32 BL (Rec: 05/17/25 09:39 BL Laptop) Sensation Evaluation Comments Summary Comments no sensation changes noted. Coordination Evaluation Comments Coordination Pt reports feeling clumsy with ambulation but demos Comments normal heel to patel test. PT-OP-J Posture/Palpation/Skin Start: 05/17/25 07:31 Freq: Status: Active Protocol: Document 05/17/25 07:32 BL (Rec: 05/17/25 09:39 BL Laptop) Posture Evaluation Comments Posture Comments Pt sits with upright posture, no lateral shift noted. Level PSIS noted in standing, with neutral SI. Palpation Assessment Location L hip Palpation Details Pt point tender to lateral thigh and posterior piriformis area. No tenderness around SI area PT-OP-K Range of Motion Start: 05/17/25 07:31 Freq: Status: Active Protocol: Document 05/17/25 07:32 BL (Rec: 05/17/25 09:39 BL Laptop) Hip Goniometric Range of Motion Hip Measured in Degrees right Hip ROM WFL Yes left Hip ROM WFL Yes Comments Increased resistance note into hip flexion and ER PT-OP-L Special Tests Start: 05/17/25 07:31 Freq: Status: Active Protocol: Document 05/17/25 07:32 BL (Rec: 05/17/25 09:39 BL Laptop) Special Tests Hip Special Tests Piriformis Test Results . LORAINE Test Results negative Timbo Test Results positive on L for tightness in hip flexor PT-OP-M Strength Start: 05/17/25 07:31 Freq: Status: Active Protocol: Document 05/17/25 07:32 BL (Rec: 05/17/25 09:39 BL Laptop) Hip Strength Hip Manual Muscle Testing Right Flexion (L2) 4+ Good+ Extension (S1) 4 Good Abduction 4+ Good+ Adduction 4+ Good+ External Rotation 4+ Good+ Internal Rotation 4+ Good+ Left Flexion (L2) 4+ Good+ Extension (S1) 4 Good Abduction 4+ Good+ Adduction 4+ Good+ External Rotation 4 Good Internal Rotation 4+ Good+ Knee Strength Knee Manual Muscle Testing Right Flexion (S2) 4+ Good+ Extension (L3) 4+ Good+ Left Flexion (S2) 4+ Good+ Extension (L3) 4+ Good+ PT-OP-T Assessment and Plan Start: 05/17/25 07:31 Freq: Status: Active Protocol: Document 06/19/25 08:15 BL (Rec: 06/19/25 09:23 BL Laptop) Physical Therapy Assessment Goals Three Board Lining Machine Operator Goal (LTG) Pt will report being able to sleep at night without increase in symptoms by DC for improved sleep quality. (progressing) 06/19/25: Pt reports mild discomfort when sleeping at night but overall improved. Two Board Lining Machine Operator Goal (LTG) Pt will demo improved L hip ER strength to 4+/5 by DC for improved hip stability with functional mobility. ( progressing) 06/19/25: pt demos 4/5 strength with minimal discomfort following, progressed from 4-/5 initially. One Short Term Goal (STG Pt will be ind with HEP within 2 visit in order to ) progress toward assisted therapy goals outside of therapy visits (Goal Met) Board Lining Machine Operator Goal (LTG) Pt will report being able to ambulate greater than 1/2 mile without increase in symptoms by DC for recreational activity (Goal Met) Assessment Summary Assessment Pt continues to progress in skilled PT intervention, pt demo improvements in hip strength and mobility, pt tolerates advancement in HEP for glute med strengthening and stability with cues for hip and core activation. Pt continues to progress toward PT goals and will continue to benefit from from skilled Pt intervention for strength and endurance training. Physical Therapy Plan Frequency and Duration Frequency of 2x/Week Treatment Duration of 8 treatment (weeks) Plan of Care Start 05/17/25 Date Plan of Care End 07/12/25 Date Next Visit Focus/Plan Next Note Type Treatment Note Next Visit Plan Recheck response to progressing stretching regimen and added STS for functional strengthening. POC: Advance HEP for hip mobility and strengthening, manual therapy to L piriformis.
--- NOTE | 2025-06-26 09:06 | PT.OTN ---
Current Diagnoses Unspecified disorder of synovium and tendon, left thigh (06/26/25) Physical Therapy Treatment Note PT-OP-A Visit Information Start: 05/17/25 07:31 Freq: Status: Active Protocol: Document 06/26/25 08:16 BL (Rec: 06/26/25 09:06 BL Laptop) Out-Patient Physical Therapy Visit Information Visit Information Visit Type Discharge Summary Visit Start Time 08:15 Visit Stop Time 08:55 Visit Number (8) 2/10 (PN by 07/20/25) Number of DIRECTOR OF CONTRACTS Visits 0 Precautions Precautions Lumbar fusion in aug PT-OP-C Subjective Start: 05/17/25 07:31 Freq: Status: Active Protocol: Document 06/26/25 08:16 BL (Rec: 06/26/25 09:06 BL Laptop) OP-PT Subjective Patient Comments Patient Comments Pt presents to the clinic this date and reports he is doing well, feels he is ready for DC at this time. Happy with his progress. PT-OP-D Balance Start: 05/17/25 07:31 Freq: Status: Active Protocol: Document 05/17/25 07:32 BL (Rec: 05/17/25 09:39 BL Laptop) Balance Tests Single Limb Standing Single Limb- Right 15 seconds Single Limb- Left 15 seconds PT-OP-G Mobility & Gait Start: 05/17/25 07:31 Freq: Status: Active Protocol: Document 05/17/25 07:32 BL (Rec: 05/17/25 09:39 BL Laptop) OP Gait Assessment Comments Gait Comments Pt ambulates with Trendelenburg gait pattern with L hip weakness. PT-OP-H Neuro Start: 05/17/25 07:31 Freq: Status: Active Protocol: Document 05/17/25 07:32 BL (Rec: 05/17/25 09:39 BL Laptop) Sensation Evaluation Comments Summary Comments no sensation changes noted. Coordination Evaluation Comments Coordination Pt reports feeling clumsy with ambulation but demos Comments normal heel to patel test. PT-OP-J Posture/Palpation/Skin Start: 05/17/25 07:31 Freq: Status: Active Protocol: Document 05/17/25 07:32 BL (Rec: 05/17/25 09:39 BL Laptop) Posture Evaluation Comments Posture Comments Pt sits with upright posture, no lateral shift noted. Level PSIS noted in standing, with neutral SI. Palpation Assessment Location L hip Palpation Details Pt point tender to lateral thigh and posterior piriformis area. No tenderness around SI area PT-OP-K Range of Motion Start: 05/17/25 07:31 Freq: Status: Active Protocol: Document 05/17/25 07:32 BL (Rec: 05/17/25 09:39 BL Laptop) Hip Goniometric Range of Motion Hip right Hip ROM WFL Yes left Hip ROM WFL Yes Comments Increased resistance note into hip flexion and ER PT-OP-L Special Tests Start: 05/17/25 07:31 Freq: Status: Active Protocol: Document 05/17/25 07:32 BL (Rec: 05/17/25 09:39 BL Laptop) Special Tests Hip Special Tests Piriformis Test Results . LORAINE Test Results negative Timbo Test Results positive on L for tightness in hip flexor PT-OP-M Strength Start: 05/17/25 07:31 Freq: Status: Active Protocol: Document 05/17/25 07:32 BL (Rec: 05/17/25 09:39 BL Laptop) Hip Strength Hip Manual Muscle Testing Right Flexion (L2) 4+ Good+ Extension (S1) 4 Good Abduction 4+ Good+ Adduction 4+ Good+ External Rotation 4+ Good+ Internal Rotation 4+ Good+ Left Flexion (L2) 4+ Good+ Extension (S1) 4 Good Abduction 4+ Good+ Adduction 4+ Good+ External Rotation 4 Good Internal Rotation 4+ Good+ Knee Strength Knee Manual Muscle Testing Right Flexion (S2) 4+ Good+ Extension (L3) 4+ Good+ Left Flexion (S2) 4+ Good+ Extension (L3) 4+ Good+ PT-OP-Q Treatments Start: 05/17/25 07:31 Freq: Status: Active Protocol: Document 06/26/25 08:16 BL (Rec: 06/26/25 09:06 BL Laptop) Therapeutic Exercises Supine Exercises strength Supine Exercise Name L with January (reviewed for home HEP) Side bilateral Resistance AROM Equipment Used lvl 3 band Reps/Minutes 2x10 each side alternating Comments cues breath with effort lift stretch Supine Exercise Name 1. figure 4 stretch 2. cross body piriformis stretch 3. IT band stretch L>R Side bilateral Resistance 1. opp leg straight today good no LB Equipment Used 2. stationary leg bent, knee toward opp shld Reps/Minutes 60 sec ea Comments 3. hookylying ankle over opp knee pull knee away from hip Sidelying Exercises strength Sidelying Exercise Clamshells, reverse clamshells (reviewed for home HEP) Name Resistance lvl 3 band, 0# Standing Exercises Dynamic strength Standing Exercise Lunges, and clock taps (reviewed for home HEP) Name Side left Equipment Used lvl 2 band Comments 2x10 resisted band walk Standing Exercise tolerates lateral walking Name Resistance lvl 1 at ankles Comments 2x10' strenght Standing Exercise lateral step ups, Name Side bilateral Resistance L>R weakness Equipment Used 6 in step Reps/Minutes 15 reps each side- improved control Comments level pelvis/core, light toe touch before heel allowed eccentric last 2 in Manual Therapy Treatment Consent Patient gave verbal Yes consent for manual treatment Soft Tissue Mobilization L hip Comments DTM with TPR to glute med and piriformis with improved tissue mobility following. Neuro Re-Education Treatment Balance Activities Bosu Details squats shuttle Details frwd/bkwd, Lateral Comments static holds and weight shifts PT-OP-T Assessment and Plan Start: 05/17/25 07:31 Freq: Status: Active Protocol: Document 06/26/25 08:16 BL (Rec: 06/26/25 09:06 BL Laptop) Physical Therapy Assessment Goals Three Lime Trimmer Goal (LTG) Pt will report being able to sleep at night without increase in symptoms by DC for improved sleep quality. (progressing) 06/19/25: Pt reports mild discomfort when sleeping at night but overall improved. Two Detention Goal (LTG) Pt will demo improved L hip ER strength to 4+/5 by DC for improved hip stability with functional mobility. ( progressing) 06/19/25: pt demos 4/5 strength with minimal discomfort following, progressed from 4-/5 initially. One Short Term Goal (STG Pt will be ind with HEP within 2 visit in order to ) progress toward ocean transportation intermediary therapy goals outside of therapy visits (Goal Met) Lime Trimmer Goal (LTG) Pt will report being able to ambulate greater than 1/2 mile without increase in symptoms by DC for recreational activity (Goal Met) Assessment Summary Assessment Pt has made great progress in skilled PT intervention and has met 2/4 therapy goals. Pt demos improved LE strength and stability as well as decreased pain. Pt provided HEP for continued strength and endurance training at home. Discussed having pt follow up in a few months if symptoms do not continue to improve. Physical Therapy Plan Frequency and Duration Frequency of 2x/Week Treatment Duration of 8 treatment (weeks) Plan of Care Start 05/17/25 Date Plan of Care End 07/12/25 Date Next Visit Focus/Plan Next Visit Plan DC PT
== END 2025-06-27 10:17 | disposition home or self-care (01) ==
LOC: PHYS 08:15
PROVIDERS: Family Provider Family Medicine; PCP Family Medicine; Referring Provider Orthopaedic Surgery Adult Reconstructive Orthopaedic Surgery; Visit Provider Orthopaedic Surgery Adult Reconstructive Orthopaedic Surgery
DX: M67.952 Unspecified disorder of synovium and tendon, left thigh (principal)
CPT/HCPCS: 97110; 97112; 97140; 97162

== ENCOUNTER 2025-09-27 14:03 | Outpatient (CLI) | payer MEDICARE, OTHER, SELFPAY ==
[2025-09-27] VITALS (10 sets, daily range): BP systolic 130–171; BP diastolic 61–96; PULSE 72–85; RESP 11–17; TEMP 37; O2SAT 97–100
[2025-09-27] MEDS: MIDAZOLAM 2 MG/2 ML VIAL IV (15:25)
[2025-09-27] MEDS: BETAMETHASONE 30 MG/5 ML MDV 12 MG INJ (15:29)
[2025-09-27] MEDS: BETAMETHASONE 30 MG/5 ML MDV 6 MG INJ (15:30)
--- NOTE | 2025-09-27 15:52 | PM.PROC.IR.1 ---
Date/Time/Diagnoses Date of procedure: 09/27/25 Time of procedure: 15:52 Pre-procedure diagnosis: Sacroiliac joint pain/DJD Post-procedure diagnosis: same Procedure Notes Procedure: Fluoroscopic guided contrast controlled bilateral sacroiliac joint injection Indications: Keith is referred by Dr. Barnard for treatment of bilateral sacroiliac joint DJD Physician: [place] Jules Total Fluoroscopy time (seconds): 10 Total sedation minutes: 20 Complications: none Procedure in detail & Post-procedure care: Description of procedure Fluoroscopic guided, contrast controlled bilateral sacroiliac joint injection Following review of allergies and review of potential side effects and complications, including, but not necessarily limited to, infection, allergic reaction, local tissue breakdown, temporary as well as permanent nerve injury, paralysis, stroke and possible , the patient indicated that they understood and agreed to proceed. An informed consent was signed by the patient, witnessed by a nurse, and placed in the patient's chart. Additionally, other treatment options including modalities, medications, and physical therapy were reviewed with the patient. After review of previous anaesthesic history and IV conscious sedation the patient was deemed safe to proceed with today?s procedure with IV conscious sedation as ASA class II designation. Safety time-out was performed to confirm patient ID, procedure to be performed and site of procedure. IV sedation was accomplished with a combination of 2mg Versed were administered by the RN after DO order, titrated to patient comfort during the course of the procedure while the patient remained responsive to all verbal commands In the prone position following sterile prep and drape of the pelvic region, the hyper lucency on in the inferior aspect of the sacroiliac joint was identified fluoroscopically the skin was anesthetized be a 25 gauge 1.5 inch needle with approximately 2cc of 1% lidocaine solution. At this point, a 22 gauge 3 in spinal needle was atraumatically introduced and advanced under fluoroscopic guidance into the inferior aspect of the right sacroiliac joint. Following negative aspiration, approximately 0.3cc of [id number]-300 was injected confirming intra-articular placement without vascular uptake. Radiographic data, including multiple fluoroscopic views of the pelvis, reveals a spinal needle in the sacroiliac joint hyper lucent zone. Subsequent view show flow contrast tear superiorly and inferiorly within the joint capsule without vascular intrathecal uptake. At this point a total of 1cc of 0.5% Marcaine was combined with 1cc of 6mg of betamethasone was injected without incident. Attention was then refocused the left sacroiliac joint where the procedure was replicated. The procedure tolerated the procedure well without signs or symptoms of complications prior to transfer to the recovery area continued monitoring without incident. The patient was then transferred to the recovery area with a bur observed for an appropriate time after the injection. The patient reverted a vas score of 7 prior to the procedure and post-procedure vas of 1. Postop instructions The patient was provided with a pain like to continue to record the patient's response to the target specific procedure prior to the patient's follow-up visit with the referring physician. Additionally, specific post injection care instructions and a contact number to our office were provided if concerns arise regarding the possible complications associated with procedure are suspected.
== END 2025-09-27 16:44 | disposition home or self-care (01) ==
LOC: RAD 14:04
PROVIDERS: PCP Family Medicine; Referring Provider Physical Medicine & Rehabilitation; Visit Provider Physical Medicine & Rehabilitation
DX: M46.1 Sacroiliitis, not elsewhere classified (principal); M53.3 Sacrococcygeal disorders, not elsewhere classified
CPT/HCPCS: 27096; 77002; 99152; J0702; J2250